=== PATIENT | female | born 1950 | race Caucasian/White ===

== ENCOUNTER → 2018-03-24 14:59 | Outpatient (CLI) | payer MEDICARE, OTHER, SELFPAY ==
--- NOTE | 2018-03-24 15:17 | RAD_ITS ---
STUDY: X-RAY - ABDOMEN/PELVIS REASON FOR EXAM: Female, 68 years old. Right-sided abdominal pain TECHNIQUE: 2 views COMPARISON: None. FINDINGS: There is a lumbar scoliosis with convexity to the left and degenerative changes of the lumbosacral spine. There is no bowel distention or free intraperitoneal air and no abnormal calcifications. RAD/Abdomen Single View IMPRESSION: No acute findings in the abdomen. No abnormal calcifications. Electronically Signed: Carlos Henderson, at 2:30 EDT Tel , Service support ,
== END ==
PROVIDERS: Visit Provider Nurse Practitioner Adult Health
DX: N20.0 Calculus of kidney (principal)
CPT/HCPCS: 74018

== ENCOUNTER → 2018-11-25 14:21 | Outpatient (CLI) | payer MEDICARE, OTHER, SELFPAY ==
--- NOTE | 2018-11-25 14:25 | RAD_ITS ---
STUDY: X-RAY - ABDOMEN/PELVIS REASON FOR EXAM: Female, 68 years old. Flank pain TECHNIQUE: AP supine and upright views of the abdomen and pelvis. COMPARISON: 03/24/2018 FINDINGS: Evidence of previous cholecystectomy There is a moderate amount of colonic fecal material. There is no demonstrated free abdominal air. The visualized liver, spleen and kidneys are grossly normal in size and morphology. Normal soft tissue structures. Degenerative bony changes with stable levoscoliosis. RAD/Abdomen Single View IMPRESSION: No acute findings Electronically Signed: Aaron Hurtado MD at 14:46 EST , Service support ,
== END ==
PROVIDERS: Referring Provider Nurse Practitioner Adult Health; Visit Provider Nurse Practitioner Adult Health
DX: N20.1 Calculus of ureter (principal)
CPT/HCPCS: 74018

== ENCOUNTER → 2018-12-25 16:36 | Outpatient (CLI) | payer MEDICARE, OTHER, SELFPAY ==
--- NOTE | 2018-12-25 16:37 | CT_ITS ---
STUDY: CT ABDOMEN AND PELVIS WITHOUT CONTRAST REASON FOR EXAM: Female, 68 years old. Right-sided kidney stone and lithotripsy RADIATION DOSAGE (If Supplied By Facility): CTDIvol = ( 14.8 ) mGy, DLP = ( 744.55 ) mGycm TECHNIQUE: Transaxial images were obtained from the dome of the diaphragm to the symphysis pubis without oral contrast, and without intravenous contrast. Sagittal and coronal images were reconstructed. Individualized dose optimization techniques were used for this CT. COMPARISON: None. FINDINGS: The visualized lung bases are unremarkable. The visualized portions of the heart are within normal limits. Small hiatal hernia. Fatty liver. There are surgical clips in the gallbladder fossa consistent with a prior cholecystectomy. Normal spleen. Normal pancreas. Normal bilateral adrenal glands. Multiple nonobstructing right renal stones, the largest measuring 5 mm. Normal left kidney. Normal visualized stomach. Normal small intestine. There are multiple colonic diverticula consistent with diverticulosis. The appendix is visualized and appears normal. Normal abdominal aorta. Normal inferior vena cava. Normal retroperitoneum. Normal urinary bladder. Normal abdominal wall. Lumbar scoliosis. CT/Abdomen/Pelvis without Cont IMPRESSION: Multiple nonobstructing right renal stones, the largest measuring 5 mm. No evidence of acute intestinal pathology or acute obstructive uropathy. Electronically Signed: Barrie Cano MD at 23:34 EDT Tel , Service support ,
[2018-12-25 17:43] LABS: AST(SGOT) 20 U/L (15-37); Alanine Aminotransfer ALT/SGPT 28 U/L (13-56); Albumin, Serum 3.9 g/dL (3.2-5.0); Alkaline Phosphatase 106 U/L (45-117); Anion Gap 6 (5-15); BUN 19 mg/dL (7-18); BUN/Creat Ratio 25.3 RATIO (10-20); Calcium,Total 8.9 mg/dL (8.5-10.1); Chloride 106 mmol/L (98-107); Creatinine, Serum 0.75 mg/dL (0.55-1.02); EST Glomerular Filtration Rate 82 mL/min (>60); Est Glom Filt Rate - Afr Amer 99 mL/min (>60); Globulin 3.8 g/dL (2.2-4.2); Glucose 120 mg/dL (74-106); Potassium 3.7 mmol/L (3.5-5.1); Protein, Total 7.7 g/dL (6.4-8.2); Sodium Level 140 mmol/L (136-145)
== END ==
PROVIDERS: Family Provider Family Medicine; PCP Family Medicine; Referring Provider Nurse Practitioner Adult Health; Visit Provider Nurse Practitioner Adult Health
DX: E03.9 Hypothyroidism, unspecified (principal); N20.0 Calculus of kidney; I10 Essential (primary) hypertension
CPT/HCPCS: 36415; 74176; 80053; 84443

== ENCOUNTER → 2018-12-30 13:38 | Outpatient (CLI) | payer MEDICARE, OTHER, SELFPAY ==
[2015-03-29 09:59] VITALS: BMI 38.0
--- NOTE | 2018-12-30 13:50 | EKG12_ITS ---
Test Reason : Blood Pressure : / mmHG Vent. Rate : 069 BPM Atrial Rate : 069 BPM P-R Int : 146 ms QRS Dur : 084 ms QT Int : 404 ms P-R-T Axes : 037 -02 014 degrees QTc Int : 432 ms Normal sinus rhythm Normal ECG Confirmed by ROMERO SAMS, CASSIDY ([id number]), medical transcription editor KALEIGH MADERA ([id number]) on 12/31/2018 1:54:43 PM Referred By: Eric Olvera Confirmed By:CASSIDY JASSO MD
[2018-12-30 14:42] LABS: Hemoglobin 14.4 g/dl (12.0-15.0); Mean Corp Hgb Conc 32.7 g/gl (32-36); Mean Corpuscular Volume 91.7 fL (81-99); Mean Platelet Vol. 12.1 fl (6.2-12.0); Platelet Count 248 K/mm3 (150-450); RBC Distribution Width CV 13.5 % (11.6-14.6); RBC Distribution Width SD 44.9 fl (35.1-43.9); White Blood Count 6.9 K/mm3 (4.4-11.0)
[2018-12-30 14:45] LABS: Scan Indicated on CBC? Y/N NO
== END ==
PROVIDERS: Family Provider Family Medicine; PCP Family Medicine; Referring Provider Urology; Visit Provider Urology
DX: Z01.818 Encounter for other preprocedural examination (principal); I10 Essential (primary) hypertension
CPT/HCPCS: 36415; 85027; 93005

== ENCOUNTER 2019-05-06 14:00 | Outpatient (RCR) | payer MEDICARE, OTHER, SELFPAY ==
--- NOTE | 2019-04-06 15:00 | HP.PTEVAL ---
Patient's Visit Information SHOSHANA MORA is a 69 year old F referred to Physical Therapy by Nikko Morillo DO with a diagnosis of Pain in Left Knee. Date of Evaluation: 04/06/19 Physical Therapist: Gina Johnson DPT - Visit Plan Frequency: 2x /Week Duration: 4 Weeks Plan: Focus on LE and core strength/stabilization with functional mobility- HEP given today- SLS, HR/TR, SLR and clams - Subjective Findings: Patient reports that she has meniscal tears in both knees- but Dr. Morillo thinks that its OA that really bothers her. She went to him for her left knee. She had pain along the medial joint line. Went to see if the tears were worse- sent her to PT for a few visits for strength training. Dr Morillo took x-rays but no MRI- had an injection in May/Jun which helped somewhat- but not a production mechanic solution. Biggest problem is stairs- Does have lumbar spine issues- does not see anyone for that. Both challenged to go up and down. Sometimes she is almost crawling up and then comes sideways down- does have stairs at home. No radiating pain- Describes the pain as stabbing and grabbing. Agg: when you touch them and stairs. Worst: 3/10 Best: 0/10 Eases: deal with it, sit down. Once she stands she can go from there. About a week ago the calf had a snap in it and is walking funny because of it. No N/T in the LE. PMHx: HTN, GERD, Hypothyroid Meds: lysinopril, levothryroxine, rhinidoine. Patient is not very active- she worked all her life and she has been retired for about 2 years and has noticed a lot of differences. - Objective Posture: FH, RS, Increased kyphosis- can correct but does not maintain. Gait: slightly antalgic- slow alyssa and toes turned out to the side. Stairs: asc with 2 hr recip with moderate UE A, Desc: recip with 2 HR and sideways descent. HR/TR: able with UE A. SLS: 3 sec then LOB- moderate hip drop. Palpation: tender along medial joint line. ROm: 0-120 degrees. Strength: Ankle: 5/5, Knee: 4+/5, Hip: 4/5 throughout Core: fair minus. Flex: HS: moderate, Gastroc: moderate - Goals Goal 1:: Patient will be I with HEP and progression Goal Time Frame: 4-6 Weeks Goal 2:: Patient will maintain proper posture t/o tx session to demo increased core s/s. Goal Time Frame: 4-6 Weeks Goal 3:: Patient will ambualte >300 feet with a normalized gait pattern Goal Time Frame: 4-6 Weeks Goal 4:: Patient will asc/desc 8 recip with 1 HR and good pattern Goal Time Frame: 4-6 Weeks - Rehabilitation Potential Physical Therapy Diagnosis: Patient presents with hypomobility- she has decreased strength, flex and muscular endurance leading to abnormal gait pattern and increased pain with ADL's. Rehabilitation Potential: Fair - Anticipated Interventions Patient/Client Instruction: Educate patient on: Benefits of Fitness Program Therapeutic Exercise to Include: Strength training, Endurance training, Balance training, Agility training, Body mechanics, Postural training, Flexibilty training, Gait and locomotor training, Passive ROM, Active ROM, Dynamic Lumbar Stabilization For the Purpose of:: To improve muscle performance and motor function TENS: Yes Cryotherapy (ice pack, ice massage): Yes Thermo therapy (hot pack): Yes Ultrasound (thermal/non thermal): Yes Thank you for the opportunity to evaluate your patient. For Medicare and Medicare HMO plans, please review the plan of care and approve it. It will need to be FAXED BACK to us at [phone] for Medicare purposes. For Medicare only, by signing this I certify the plan of care. Please let me know if there are questions or concerns regarding this plan of care. Physician Signature: Date:
--- NOTE | 2019-05-06 14:17 | HP.PTDCSUM ---
HP - PT D/C Summary It has been my pleasure to treat SHOSHANA MORA under orders from Nikko Morillo DO, for the diagnosis of Pain in Left Knee for a total of 9 visit(s). Discharge Date: Please see the following information for a summary of their discharge status. - Subjective Subjective: Patient reports that her hip is a lot better- the knee does have a little bit of pain with exercises. Stairs going up does- Worst: 4/10- Pain goes away when she stops activities. Knees don't stop her from doing anything. - Pain left knee Pain Intensity (Out of 10): 2 right knee Pain Intensity (Out of 10): 0 - Overall Improvement % Improvement: 100 - Objective Objective/Function: Posture: FH, RS, Increased kyphosis- can correct but does not maintain. Gait: slightly antalgic- slow alyssa and toes turned out to the side. Stairs:as/desc 8 stairs recip with 1 HR. HR/TR: able with UE A. SLS: 8 sec then LOB- mild hip drop. Palpation: not tender ROm: 0-120 degrees. Strength: Ankle: 5/5, Knee: 5/5, Hip: 4+/5 throughout Core: fair. Flex: HS: moderate, Gastroc: moderate - Goals Goal 1:: Patient will be I with HEP and progression Goal Progress: Goal Met Goal 2:: Patient will maintain proper posture t/o tx session to demo increased core s/s. Goal Progress: Progressing Goal 3:: Patient will ambualte >300 feet with a normalized gait pattern Goal Progress: Progressing Goal 4:: Patient will asc/desc 8 recip with 1 HR and good pattern Goal Progress: Goal Met - Plan Plan: Discharge to I HEP - D/C Information If there are questions or concerns regarding this patient's physical therapy, please feel free to call me at [phone]. Thank you for the referral of this patient. Sincerely, Gina Johnson DPT
== END 2019-05-06 14:34 | disposition home or self-care (01) ==
LOC: PT 14:00
PROVIDERS: Family Provider Family Medicine; PCP Family Medicine; Referring Provider Orthopaedic Surgery; Visit Provider Orthopaedic Surgery
DX: M25.562 Pain in left knee (principal); M17.12 Unilateral primary osteoarthritis, left knee
CPT/HCPCS: 97110; 97140; 97161; 97164

== ENCOUNTER 2019-09-21 15:39 | Emergency (ER) | payer MEDICARE, OTHER, SELFPAY ==
[2019-09-21 15:39] VITALS: BP 178/95; PULSE 84; RESP 16; TEMP 36.4; O2SAT 97; BMI 39.1
--- NOTE | 2019-09-21 15:57 | ED.DCSUM_ITS ---
History of Present Illness Chief Complaint: Flank Pain Informant: Patient Onset: Today Narrative: Waxing waning right flank pain rating to the groin today. Nausea when pain comes. Currently subsided. History kidney stones in the past, last one this past fall. Has been dealing with stone since 1996. Required laser surgery by Dr. Olvera this past fall. No urinary symptoms. No fevers. Denies history of gastric ulcers or kidney injury. No fever, chills, sweats. Prior similar symptoms: Yes Past Medical History - Allergies and Home Meds Allergies/Adverse Reactions: Allergies PLASTIC TAPE Adverse Reaction (Uncoded 09/21/19 15:39) Other PULLS SKIN OFF Primary Care Physician: Bipin Adams MD [Primary Care Provider] - Smoking Status: Never smoker Review of Systems All systems negative except as indicated General: Denies: Chills, Fever, Sweats Eyes: Denies: Visual changes - bilaterally, Diplopia ENT: Denies: Rhinorrhea, Sore throat Cardiovascular: Denies: Chest pain, Palpitations Respiratory: Denies: Dyspnea, Cough, Dyspnea on exertion Gastrointestinal: Reports: Nausea. Denies: Abdominal pain, Vomiting, Diarrhea, Melena, Hematochezia Genitourinary: Denies: Dysuria, Hematuria, Frequency Musculoskeletal: Reports: Back pain. Denies: Extremity Pain Skin: Denies: Rash, Wounds Neurological: Denies: Headache, Weakness, Numbness Physical Exam Vital Signs/Narrative: Vital Signs Temp Pulse Resp BP Pulse Ox 09/21/19 15:39 97.5 F L 84 16 178/95 H 97 Inital Vital Signs reviewed: Yes General: Well nourished, Well developed, No Acute Distress Head: Normocephalic, Atraumatic Eyes: Perrl, EOMI ENT: Moist mucous membranes, No rhinorrhea Neck: Supple, Nontender Cardiovascular: Regular rate, Regular rhythm, No murmurs Respiratory: No distress, CTA bilaterally, Chest nontender Abdomen: Soft, Nontender, Nondistended, Normal bowel sounds Back: Nontender, Normal Inspection, - - No rash of flank region.. Negative for: CVA tenderness Extremities: Nontender, No edema Skin: Normal color, No rash Neurological: Alert, Oriented x3, Cranial nerves II-XII grossly intact, Normal Strength, Normal Sensation Psychological: Normal affect, Normal Mood Diagnostic/Tx/Re-eval Clinical Impression(s) from Imaging Studies Abdomen/Pelvis CT 09/21/19 15:57 IMPRESSION: 2 mm stone at the right ureteropelvic junction with moderate right hydronephrosis. 2 mm nonobstructing stone in the collecting system of the right kidney. No left-sided stones. No left-sided hydronephrosis. No bowel obstruction or inflammation. Normal appendix. Electronically Signed: Dick Kim, at 16:31 EST Tel , Service support , Abnormal Lab Results 09/21/19 16:10 Urine Color Yellow Urine Clarity Clear Urine pH 6.0 Ur Specific [place] 1.025 Urine Protein Negative Urine Glucose (UA) Normal Urine Ketones 5 H Urine Occult Blood 25 H Urine Nitrite Negative Urine Bilirubin Negative Urine Urobilinogen Normal Ur Leukocyte Esterase Negative Urine RBC 0-5 SEEN Urine WBC 0 SEEN Ur Squamous Epith Cells 0-5 SEEN Urine Bacteria RARE Urine Mucus 1+ - Medical Decision Making Patient nontoxic on exam. Symptoms are subsiding. Urine checked noted hematuria. CT scan notes 2 separate 2 mm stones on the right side. Reevaluation symptoms return, treat with Zofran, Flomax, Motrin, oxycodone with improvement. There is no infection of the urine symptoms currently controlled. Prescriptions to continue for symptom control and follow-up with urology. Signs and sent discussed return. All questions were answered. ED Disposition - Plan for ED Patient: Disposition: Home or Assisted Living Diagnosis: Urolithiasis Instructions: KIDNEY STONE w/ Colic Prescriptions: Tamsulosin HCl [Flomax] 0.4 mg PO DAILY #7 capsule Ibuprofen 600 mg PO Q6H PRN PRN #20 tablet PRN Reason: Pain Or Fever Oxycodone HCl/Acetaminophen [Percocet 5/325] 1 tablet PO Q6H PRN PRN 3 Days #12 tablet PRN Reason: Pain Ondansetron [Zofran Odt] 4 mg PO Q8H PRN PRN #10 tablet PRN Reason: Nausea Referrals: Bipin Adams MD [Primary Care Provider] - Eric Olvera MD [STAFF PHYSICIAN] - 3-5 Days
--- NOTE | 2019-09-21 15:57 | CT_ITS ---
STUDY: CT ABDOMEN AND PELVIS WITHOUT CONTRAST REASON FOR EXAM: Female, 69 years old. Right flank pain RADIATION DOSAGE (If Supplied By Facility): CTDIvol = ( 14.80 ) mGy, DLP = ( 733.45 ) mGycm TECHNIQUE: Transaxial images were obtained from the dome of the diaphragm to the symphysis pubis without oral contrast, and without intravenous contrast. Sagittal and coronal images were reconstructed. Individualized dose optimization techniques were used for this CT. COMPARISON: 12/25/2018 FINDINGS: Evaluation of the abdominal viscera is limited in the absence of intravenous contrast. The visualized lung bases are clear. The visualized portions of the heart and pericardium are within normal limits. The patient is status post cholecystectomy. The liver demonstrates an unremarkable unenhanced appearance. The spleen is normal in size. The pancreas demonstrates an unremarkable unenhanced appearance. The adrenal glands are within normal limits. There is a 2 mm stone at the right ureteropelvic junction with moderate right hydronephrosis. There is a 2 mm nonobstructing stone in the collecting system of the right kidney. There are no left renal or ureteral stones. There is no left hydronephrosis. Normal visualized stomach. There is no bowel obstruction or inflammation. The appendix is visualized and appears normal. The aorta is normal in caliber. There is no abdominal or pelvic free air, free fluid, fluid collection or lymphadenopathy. There are no destructive osseous lesions. CT/Abdomen/Pelvis without Cont IMPRESSION: 2 mm stone at the right ureteropelvic junction with moderate right hydronephrosis. 2 mm nonobstructing stone in the collecting system of the right kidney. No left-sided stones. No left-sided hydronephrosis. No bowel obstruction or inflammation. Normal appendix. Electronically Signed: Dick Kim, at 16:31 EST Tel , Service support ,
[2019-09-21 16:15] LABS: White Blood Cells 0 SEEN /hpf (0-5)
[2019-09-21 16:22] LABS: Color, Urine Yellow (Yellow); Glucose, Dipstick Normal (Normal); Ketone-Dipstick 5 mg/dl (Negative); Leukocyte Esterase-Dipstick Negative /ul (Negative); Nitrite-Dipstick Negative (Negative); Occult Blood-Urine 25 /ul (Negative); Protein-Dipstick Negative (Negative); Specific Gravity, Urine 1.025 (1.002-1.030); Urine Bilirubin Dipstick Negative (Negative); Urine Clarity Clear (Clear); Urine Urobilinogen Normal (Normal)
[2019-09-21 16:50] LABS: Bacteria RARE /hpf (None Seen); Mucous, Urine 1+ /hpf (<or=2+); Red Blood Cells-Urine 0-5 SEEN /hpf (0-5); Squamous Epithelial Cells - UA 0-5 SEEN /hpf (5-10)
[2019-09-21] MEDS: Ondansetron ODT 4 MG Tablet 8 MG PO (17:12)
[2019-09-21] MEDS: Ibuprofen 600 MG Tablet PO (17:40)
[2019-09-21] MEDS: oxyCODONE 5 MG Tablet PO (17:40)
[2019-09-21] MEDS: Tamsulosin HCl 0.4 MG Capsule PO (17:40)
[2019-09-21 17:41] VITALS: BP 149/68; PULSE 66; RESP 16; O2SAT 97
== END 2019-09-21 18:34 | disposition home or self-care (01) ==
PROVIDERS: Emergency Provider Emergency Medicine; Family Provider Family Medicine; PCP Family Medicine
DX: N13.2 Hydronephrosis with renal and ureteral calculous obstruction (principal); Z87.442 Personal history of urinary calculi; Z88.8 Allergy status to other drugs, medicaments and biological substances
CPT/HCPCS: 74176; 81001; 99283

== ENCOUNTER → 2019-09-24 15:25 | Outpatient (CLI) | payer MEDICARE, OTHER, SELFPAY ==
[2019-09-21 15:39] VITALS: BMI 39.1
[2019-09-24 17:46] LABS: Absolute Lymphocyte Count 1.56 X10^3/uL (0.83-4.51); Absolute Neutrophil Count 5.8 X10^3/uL (2.0-7.7); Basophil# 0.03 X10^3/uL; Basophil% 0.4 % (0-1); Eosinophil# 0.13 X10^3/uL; Eosinophils% 1.6 % (0-5); Hematocrit 42.6 % (37-47); Hemoglobin 13.9 g/dL (12.0-15.0); Lymphocyte # 1.56 X10^3/ul (4.0); Mean Corp Hgb Conc 32.6 g/dL (32-36); Mean Corpuscular Hgb 30.2 pg (27.0-32.0); Mean Corpuscular Volume 92.4 fL (81-99); Mean Platelet Vol. 12.2 fl (6.2-12.0); Monocyte# 0.67 X10^3/uL; Monocyte% 8.2 % (0-10); NRBC Flagged by Analyzer 0 % (0-5); Neutrophil # 5.79 X10^3/uL (2.7-7.7); Neutrophil % 70.3 % (47-70); Platelet Count 256 K/mm3 (150-450); RBC Distribution Width CV 12.7 % (11.6-14.6); RBC Distribution Width SD 43.1 fl (35.1-43.9); Red Blood Count 4.61 M/mm3 (4.2-5.4); White Blood Count 8.2 K/mm3 (4.4-11.0)
[2019-09-24 17:47] LABS: Vitamin D,25 Hydroxy 16.2 ng/mL (29.95-100.01)
[2019-09-24 17:52] LABS: AST(SGOT) 21 U/L (15-37); Alanine Aminotransfer ALT/SGPT 37 U/L (13-56); Albumin, Serum 3.8 g/dL (3.2-5.0); Alkaline Phosphatase 101 U/L (45-117); Anion Gap 4 (5-15); BUN 14 mg/dL (7-18); BUN/Creat Ratio 20.1 RATIO (10-20); Chloride 106 mmol/L (98-107); EST Glomerular Filtration Rate 89 mL/min (>60); Est Glom Filt Rate - Afr Amer 108 mL/min (>60); Globulin 3.8 g/dL (2.2-4.2); Glucose 103 mg/dL (74-106); Potassium 4.3 mmol/L (3.5-5.1); Protein, Total 7.6 g/dL (6.4-8.2); Sodium Level 140 mmol/L (136-145); Thyroid Stim Hormone (TSH) 1.44 uIU/mL (0.358-3.74); Uric Acid 4.8 mg/dL (2.6-6.0)
[2019-10-14 16:07] LABS: Ca Oxalate, Dihydrate 15 % (.); Ca Oxalate, Monohydrate 82 % (.); Size 4x2x2 mm (.)
== END ==
PROVIDERS: Urology; Family Provider Family Medicine; PCP Family Medicine; Referring Provider Family Medicine; Visit Provider Family Medicine
DX: I10 Essential (primary) hypertension (principal); N20.0 Calculus of kidney
CPT/HCPCS: 36415; 80053; 82306; 82360; 84443; 84550; 85025

== ENCOUNTER → 2020-03-23 11:30 | Outpatient (CLI) | payer MEDICARE, OTHER, SELFPAY ==
[2020-03-23 16:10] LABS: AST(SGOT) 20 U/L (15-37); Alanine Aminotransfer ALT/SGPT 34 U/L (13-56); Albumin, Serum 3.8 g/dL (3.2-5.0); Alkaline Phosphatase 94 U/L (45-117); Anion Gap 6 (5-15); BUN 18 mg/dL (7-18); BUN/Creat Ratio 27.8 RATIO (10-20); Calcium,Total 9.6 mg/dL (8.5-10.1); Chloride 105 mmol/L (98-107); Creatinine, Serum 0.65 mg/dL (0.55-1.02); EST Glomerular Filtration Rate 97 mL/min (>60); Est Glom Filt Rate - Afr Amer 117 mL/min (>60); Globulin 3.8 g/dL (2.2-4.2); Glucose 97 mg/dL (74-106); Potassium 4.3 mmol/L (3.5-5.1); Protein, Total 7.6 g/dL (6.4-8.2); Sodium Level 140 mmol/L (136-145)
== END ==
PROVIDERS: PCP Family Medicine; Visit Provider Family Medicine
DX: I10 Essential (primary) hypertension (principal); E55.9 Vitamin D deficiency, unspecified
CPT/HCPCS: 36415; 80053; 82306

== ENCOUNTER → 2020-07-05 14:14 | Outpatient (CLI) | payer MEDICARE, OTHER, SELFPAY ==
--- NOTE | 2020-07-05 14:17 | BI_ITS ---
MAMMOGRAPHY - BILATERAL SCREENING REASON FOR EXAM: Female, 70 years old. Routine annual screening examination. PERTINENT HISTORY: Non-contributory. TECHNIQUE: Digital bilateral breast juli (3D mammographic acquisition) in the CC and MLO projections. 2-D mediolateral oblique (MLO) and craniocaudad (CC) views of both breasts were obtained. CAD: Full Field Digital Mammography with Computer Added Detection was performed. COMPARISON: Comparison is made with prior outside examination 07/28/2018. FINDINGS: Breast Composition: The breasts are heterogeneously dense, which may obscure small masses. There are no dominant masses or suspicious calcifications. No other significant abnormalities are identified. There has been no significant change since the prior study. BI/SCREEN MAMM (CAD) W/JULI BILAT IMPRESSION: Stable bilateral screening mammogram. Yearly follow-up mammogram recommended. (A) ASSESSMENT CATEGORY: BIRADS Category 1: Negative. A letter regarding these results will be sent to the patient by the facility within 30 days. Approximately 10% of breast cancers are not detected by mammography. A normal mammogram should not delay biopsy of a clinically suspicious abnormality. [id number] Electronically Signed: Jaciel Isabel, at 15:35 EDT , Service support ,
--- NOTE | 2020-07-05 14:21 | BD_ITS ---
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 COMPARISON: None. FINDINGS: Lumbar Spine (L1-L4): g/cm2 (1.143) / T-score (-0.3) / Z-score (1.3) Findings are suggestive of normal bone density with a low fracture risk. Left Femur Total: g/cm2 (0.831) / T-score (-1.4) / Z-score (0.0) Left Femoral Neck: g/cm2 (0.697) / T-score (-2.5) / Z-score (-0.8) Right Femur Total: g/cm2 (0.847) / T-score (-1.3) / Z-score (0.1) Right Femoral Neck: g/cm2 (0.705) / T-score (-2.4) / Z-score (0.8) BD/Dexa Bone Density Study IMPRESSION: The patient is considered osteopenic as outlined below according to World Yonas Organization (WHO) criteria with a high fracture risk. Reference Information: The T-score is the number of standard deviations above or below the standard which is normal for young adults at their peak bone mineral density. The World Health Organization (WHO) interprets the T-scores as follows: Above -1 Normal bone density Between -1 and -2.5 Osteopenia Equal to / or below -2.5 Osteoporosis As a practical clinical guideline, osteopenia may be graded as follows: Mild -1 through -1.5 Moderate -1.6 through -2.0 Severe -2.1 through -2.4 The Z-score is the number of standard deviations above or below age-matched controls. A Z-score of less than -1.5 would be considered abnormal. References: 1. NIH Osteoporosis and Related Bone Diseases http://www.osteo.org 2. International Society for Clinical Densitometry http://www.iscd.org 3. National Osteoporosis Foundation http://www.nof.org Electronically Signed: Jaciel Isabel, at 15:59 EDT , Service support ,
== END ==
PROVIDERS: PCP Family Medicine; Referring Provider Nurse Practitioner Adult Health; Visit Provider Nurse Practitioner Adult Health
DX: Z12.31 Encounter for screening mammogram for malignant neoplasm of breast (principal); Z78.0 Asymptomatic menopausal state
CPT/HCPCS: 77063; 77067; 77080

== ENCOUNTER → 2020-12-30 11:25 | Outpatient (CLI) | payer MEDICARE, OTHER, SELFPAY ==
[2020-12-30 15:34] LABS: Microalbumin,Random Urine < 5.0 mg/L (NO RANGE EST.)
[2020-12-30 15:40] LABS: AST(SGOT) 22 U/L (15-37); Alanine Aminotransfer ALT/SGPT 33 U/L (13-56); Albumin, Serum 3.8 g/dL (3.2-5.0); Alkaline Phosphatase 100 U/L (45-117); Anion Gap 6 (5-15); BUN 17 mg/dL (7-18); BUN/Creat Ratio 25.8 RATIO (10-20); Calcium,Total 9.2 mg/dL (8.5-10.1); Chloride 105 mmol/L (98-107); Creatinine, Serum 0.66 mg/dL (0.55-1.02); EST Glomerular Filtration Rate 95 mL/min (>60); Est Glom Filt Rate - Afr Amer 115 mL/min (>60); Globulin 3.7 g/dL (2.2-4.2); Glucose 96 mg/dL (74-106); Potassium 4.1 mmol/L (3.5-5.1); Protein, Total 7.5 g/dL (6.4-8.2); Sodium Level 140 mmol/L (136-145); Thyroid Stim Hormone (TSH) 1.86 uIU/mL (0.358-3.74)
== END ==
PROVIDERS: PCP Family Medicine; Referring Provider Family Medicine; Visit Provider Family Medicine
DX: I10 Essential (primary) hypertension (principal); E03.9 Hypothyroidism, unspecified; E55.9 Vitamin D deficiency, unspecified
CPT/HCPCS: 36415; 80053; 82043; 82306; 82570; 84443

== ENCOUNTER → 2021-02-14 16:17 | Outpatient (CLI) | payer MEDICARE, OTHER, SELFPAY ==
--- NOTE | 2021-02-14 16:19 | RAD_ITS ---
STUDY: X-RAY - PELVIS AND LEFT HIP REASON FOR EXAM: Female, 71 years old. Left hip and back pain TECHNIQUE: 3 views of the pelvis and hip. COMPARISON: None. FINDINGS: There is a non-specific bowel gas pattern. Normal visualized soft tissue structures. Normal bilateral iliac wings, sacroiliac joints and visualized sacrum. Normal bilateral superior and inferior pubic rami. Normal pubic symphysis. Normal bilateral ischial tuberosities. Normal visualized femoral head. Normal acetabulum. There is mild articular joint space narrowing of the hip. RAD/HIP, UNI W/ Pelvis 2-3 Views IMPRESSION: Mild, age consistent degenerative changes, no acute findings Electronically Signed: Aaron Hurtado MD at 8:51 EDT , Service support ,
--- NOTE | 2021-02-14 16:19 | RAD_ITS ---
STUDY: X-RAY - SACROILIAC JOINTS REASON FOR EXAM: Female, 71 years old. Left hip and low back pain TECHNIQUE: 3 view(s) of the sacroiliac joints were obtained. COMPARISON: None. FINDINGS: Normal bilateral sacroiliac joints. Normal visualized sacral ala and sacrum. Normal visualized iliac bones. Normal visualized soft tissue structures. RAD/S-I Jts 3 or More Views IMPRESSION: Normal x-ray examination of the bilateral sacroiliac joints. Electronically Signed: Aaron Hurtado MD at 8:52 EDT , Service support ,
--- NOTE | 2021-02-14 16:19 | RAD_ITS ---
STUDY: X-RAY - RIGHT KNEE REASON FOR EXAM: Female, 71 years old. Pain, instability TECHNIQUE: 3 view(s) of the knee. COMPARISON: None. FINDINGS: Normal visualized distal femur. Normal visualized proximal tibia and fibula. Normal proximal tibiofibular articulation. There is mild degenerative arthrosis of the medial femorotibial compartment. There is mild degenerative arthrosis of the lateral femorotibial compartment. There is mild degenerative arthrosis of the patellofemoral articulation. The soft tissue structures are unremarkable. RAD/Knee 3 Views IMPRESSION: Degenerative arthrosis. Electronically Signed: Aaron Hurtado MD at 8:51 EDT , Service support ,
== END ==
PROVIDERS: PCP Family Medicine; Referring Provider Family Medicine; Visit Provider Family Medicine
DX: M25.561 Pain in right knee (principal); M76.892 Other specified enthesopathies of left lower limb, excluding foot
CPT/HCPCS: 72202; 73502; 73562

== ENCOUNTER 2021-04-24 16:30 | Outpatient (RCR) | payer MEDICARE, OTHER, SELFPAY ==
--- NOTE | 2021-02-22 15:34 | HP.PTEVAL_ITS ---
Patient's Visit Information SHOSHANA MORA is a 71 year old F referred to Physical Therapy by Dr. Bipin Adams MD with a diagnosis of Right Knee Pain/Weakness- OA and Left Hip Tendonitis. Date of Evaluation: 02/22/21 Physical Therapist: Gina Johnson DPT - Visit Plan Frequency: 2x /Week Duration: 4 Weeks Plan: Focus on LE and core strength/stabilization- mod of US as needed. HEP Given IE: SLR, hip adduction, hip abduction, HR/TR, Weight shift left, SLS right - Subjective Patient reports that she has left hip pain and right knee pain. She has had hip and knee pain for years and years. 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 Went to chiro last month who was treating for SI joint and thought she had some hip narrowing. Had x-rays taken- which showed some OA. She was given an anti- inflamatory Meloxicam which made her feet swell so they put her on Celebrex no changes in pain noted. Right knee gives out on her so she has to use the left leg which really is painful and she is required to use a rail on both sides. Left: Worst: 7/10 Agg: sitting for long periods of time and going up stairs. The pain is located in the greater troch on the posterior side. Feels that its tendonitis. No radiating pain- no N/T that is new. Does have back pain with sweeping and mopping- has to rest throughout those activities. Worst: 2/10 Eases: distraction and standing hip circles. Describes the pain as painful when she goes to get up from sitting a sharp pain. Did go back to work and help- standing for the whole time she is at work. Does wear orthotics and compression hose when she is working or going out for a walk. She has retired so she is more sedentary. Right Knee- meniscal tear- no surgeries on that knee- has had an injection which helped but it was a long time ago. Worst: 8/10 Sharp shooting pain Agg: weight bearing. Is doing the exercises but still irritated. Best: 0/10 Eases: sitting down or resting. Pain is located along medial and lateral joint line- no pain radiating in LE- no N/T in the right foot. Patient has not had any recent MRI of bilateral LE. Sleep: disturbed if she turns onto the left side. PMHX: Thyroid, HTN Meds: HTN med and thyroid, vitamin K, phemododine - Objective Posture: FH, RS, increased kyphosis- can correct but does not maintain. Gait: antalgic- decreased heel/toe pattern on right with increased hip drop and stance on the left- increased pelvic sway. Stairs: asc non recip with 2 HR, desc recip sideways. HR/TR: able with UE A. SLS: Right: 10-15 seconds Left: 2-3 seconds with pain on the left. 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 ROM: WFL in all planes of lumbar and bilateral LE. Flex: HS: mild, Gastroc: mild. Strength: Core: fair minus, Hip: 4-/5 throughout, Knee: 4+/5, Ankle: 5/5. Palpation: tender along medial and lateral joint line of the right knee- glut med on the left. - Goals Goal 1:: Patient will be I with HEP and progression Goal Time Frame: 4-6 Weeks Goal 2:: Patient will asc/desc 8 stairs with 1 HR and recip pattern Goal Time Frame: 4-6 Weeks Goal 3:: Patient will SLS bilateral 15 sec each Goal Time Frame: 4-6 Weeks Goal 4:: Patient will report no pain for 1 week in bilateral LE Goal Time Frame: 4-6 Weeks - Rehabilitation Potential Physical Therapy Diagnosis: Patient presents with hypomobility- she has decreased core strength/stabilization, LE strength, proprioception and muscular endurance leading to poor posture and increased pain with ADL's. Rehabilitation Potential: Good - Anticipated Interventions Patient/Client Instruction: Educate patient on: Benefits of Fitness Program Therapeutic Exercise to Include: Strength training, Endurance training, Balance training, Agility training, Body mechanics, Postural training, Flexibilty training, Gait and locomotor training, Neuromotor development, Passive ROM, Active ROM, Dynamic Lumbar Stabilization, Scapular Strength/Stabilization For the Purpose of:: To improve muscle performance and motor function TENS: Yes Cryotherapy (ice pack, ice massage): Yes Thermo therapy (hot pack): Yes Ultrasound (thermal/non thermal): Yes Thank you for the opportunity to evaluate your patient. For Medicare and Medicare HMO plans, please review the plan of care and approve it. It will need to be FAXED BACK to us at [phone] for Medicare purposes. For Medicare only, by signing this I certify the plan of care. Please let me know if there are questions or concerns regarding this plan of care. Physician Signature: Date:
--- NOTE | 2021-04-03 11:30 | HP.PTREVAL ---
Dr. Bipin Adams MD, It has been my pleasure to treat SHOSHANA MORA over the last 8 visits for Right Knee Pain/Weakness- OA and Left Hip Tendonitis. Please see the progress note below for an update on the physical therapy plan of care! Subjective: Patient reports that she is getting better- but she is still having problems with some exercises- and gets a grisel horse in the back of her right leg. Objective/Function: Posture: FH, RS, increased kyphosis- can correct but does not maintain. Gait: antalgic- decreased heel/toe pattern on right with increased hip drop and stance on the left- increased pelvic sway. Stairs: asc recip with 2 HR, desc recip partially sideways. HR/TR: able with UE A. SLS: Right: 10-15 seconds Left: 5-10 seconds with pain on the left. ROM: WFL in all planes of lumbar and bilateral LE. Flex: HS: mild, Gastroc: mild. Strength: Core: fair minus, Hip: 4/5 throughout, Knee: 4+/5, Ankle: 5/5. Palpation: tender along medial and lateral joint line of the right knee- glut med on the left. Plan Plan: 04/03: Continue with current poc- focus on machines and move standing ex to HEP. Focus on LE and core strength/stabilization- mod of US as needed. HEP Given IE: SLR, hip adduction, hip abduction, HR/TR, Weight shift left, SLS right Goals Goal 1:: Patient will be I with HEP and progression Goal Time Frame: 4-6 Weeks Goal Progress: Progressing Goal 2:: Patient will asc/desc 8 stairs with 1 HR and recip pattern Goal Time Frame: 4-6 Weeks Goal Progress: Progressing Goal 3:: Patient will SLS bilateral 15 sec each Goal Time Frame: 4-6 Weeks Goal Progress: Progressing Goal 4:: Patient will report no pain for 1 week in bilateral LE Goal Time Frame: 4-6 Weeks Goal Progress: Progressing Anticipated Interventions Patient/Client Instruction: Educate patient on: Benefits of Fitness Program Therapeutic Exercise to Include: Strength training, Endurance training, Balance training, Agility training, Body mechanics, Postural training, Flexibilty training, Gait and locomotor training, Neuromotor development, Passive ROM, Active ROM, Dynamic Lumbar Stabilization, Scapular Strength/Stabilization For the Purpose of:: To improve muscle performance and motor function TENS: Yes Cryotherapy (ice pack, ice massage): Yes Thermo therapy (hot pack): Yes Ultrasound (thermal/non thermal): Yes Please do not hesitate to contact me at [phone] by phone or if you have questions or concerns regarding this new plan of care! Sincerely, DELFINO GrayT
--- NOTE | 2021-04-24 16:54 | HP.PTDCSUM ---
It has been my pleasure to treat SHOSHANA MORA referred by Dr. Bipin Adams MD, with the diagnosis of Right Knee Pain/Weakness- OA and Left Hip Tendonitis for a total of 13 visit(s). Discharge Date: Please see the following information for a summary of their discharge status. Subjective: Reports taking a fall at work and landing on her right hip and knee. It still wakes her up at night sometimes. When she gets up and moving she is doing better. right knee Pain Intensity (Out of 10): 4 left hip Pain Intensity (Out of 10): 0 % Improvement: 0 Objective/Function: Patient was able to complete without incidence. Verbalized understanding of importance of exercises. Educated to call if questions. Goal 1:: Patient will be I with HEP and progression Goal Progress: Progressing Goal 2:: Patient will asc/desc 8 stairs with 1 HR and recip pattern Goal Progress: Progressing Goal 3:: Patient will SLS bilateral 15 sec each Goal Progress: Progressing Goal 4:: Patient will report no pain for 1 week in bilateral LE Goal Progress: Progressing Plan: 04/24: Discharge to HEP. 04/03: Continue POC - focus on machines. Focus on LE and core strength/stabilization- mod of US as needed If there are questions or concerns regarding this patient's physical therapy, please feel free to call me at [phone]. Thank you for the referral of this patient. Sincerely, Gina Johnson DPT
== END 2021-04-24 19:00 | disposition home or self-care (01) ==
LOC: PT 16:30
PROVIDERS: PCP Family Medicine; Referring Provider Family Medicine; Visit Provider Family Medicine
DX: M25.561 Pain in right knee (principal); M62.81 Muscle weakness (generalized); M16.12 Unilateral primary osteoarthritis, left hip; M76.9 Unspecified enthesopathy, lower limb, excluding foot
CPT/HCPCS: 97035; 97110; 97162; 97530

== ENCOUNTER → 2021-07-07 17:45 | Outpatient (CLI) | payer MEDICARE, OTHER, SELFPAY | PROVIDERS: Visit Provider Family Medicine | DX: Z20.822 Contact with and (suspected) exposure to COVID-19 (principal) | CPT/HCPCS: 87635; U0005; U0003 ==

== ENCOUNTER → 2021-07-11 07:43 | Outpatient (CLI) | payer MEDICARE, OTHER, SELFPAY ==
--- NOTE | 2021-07-11 07:47 | BI_ITS ---
MAMMOGRAPHY - BILATERAL SCREENING 3-D TOMOSYNTHESIS REASON FOR EXAM: Female, 71 years old. SCREENING PERTINENT HISTORY: No significant family history. TECHNIQUE: 2-D mammograms and 3-D Tomosynthesis of the breast (s) were performed. CAD was performed. COMPARISON: 07/05/2020 FINDINGS: The breast composition is heterogeneously dense that can obscure small breast masses. Scattered benign calcifications are seen. No dense spiculated masses or suspicious microcalcifications are identified. No architectural distortion is identified. There is no skin thickening or retraction. There has been no significant change since the prior study. BI/SCREENING MAMM (CAD), BILAT IMPRESSION: No mammographic signs of malignancy. Routine yearly mammograms recommended. ASSESSMENT CATEGORY: BIRADS Category 1: Negative. A letter regarding these results will be sent to the patient by the facility within 30 days. FOLLOW UP RECOMMENDATION: Yearly follow up mammogram recommended. (A) Approximately 10% of breast cancers are not detected by mammography. A normal mammogram should not delay biopsy of a clinically suspicious abnormality. Electronically Signed: Glen Light MD at 8:17 EDT Tel , Service support ,
== END ==
PROVIDERS: PCP Family Medicine; Referring Provider Family Medicine; Visit Provider Family Medicine
DX: Z12.31 Encounter for screening mammogram for malignant neoplasm of breast (principal)
CPT/HCPCS: 77067

== ENCOUNTER 2021-12-20 09:47 | Outpatient (CLI) | payer MEDICARE, OTHER, SELFPAY ==
[2021-12-20 12:39] LABS: Hemoglobin A1c 5.6 % (3.8-5.6)
[2021-12-20 12:40] LABS: Microalbumin,Random Urine < 5.0 mg/L (NO RANGE EST.)
[2021-12-20 12:44] LABS: ALB/GLOB Ratio 1.2 RATIO (0.9-2.4); AST(SGOT) 21 U/L (15-37); Alanine Aminotransfer ALT/SGPT 30 U/L (13-56); Albumin, Serum 3.8 g/dL (3.2-5.0); Alkaline Phosphatase 97 U/L (45-117); Anion Gap 4 (5-15); BUN 19 mg/dL (7-18); BUN/Creat Ratio 32.7 RATIO (10-20); Chloride 105 mmol/L (98-107); Cholesterol 181 mg/dL (200); Creatinine, Serum 0.58 mg/dL (0.55-1.02); EST Glomerular Filtration Rate 109 mL/min (>60); Est Glom Filt Rate - Afr Amer 132 mL/min (>60); Globulin 3.3 g/dL (2.2-4.2); Glucose 97 mg/dL (74-106); High Density Lipoprotein 48 mg/dL; Potassium 4.9 mmol/L (3.5-5.1); Protein, Total 7.1 g/dL (6.4-8.2); Sodium Level 140 mmol/L (136-145); Thyroid Stim Hormone (TSH) 2.62 uIU/mL (0.358-3.74); Triglycerides 65 mg/dL; Very Low Density Lipoprotein 13 mg/dL (5-40)
== END 2021-12-20 23:59 | disposition home or self-care (01) ==
LOC: MFPLAB 09:50
PROVIDERS: PCP Family Medicine; Referring Provider Family Medicine; Visit Provider Family Medicine
DX: I10 Essential (primary) hypertension (principal); E66.01 Morbid (severe) obesity due to excess calories; E03.9 Hypothyroidism, unspecified; Z68.39 Body mass index [BMI] 39.0-39.9, adult
CPT/HCPCS: 36415; 80053; 80061; 82043; 82570; 83036; 84443

== ENCOUNTER → 2022-01-26 | Outpatient (CLI) | payer MEDICARE, OTHER, SELFPAY | END | disposition home or self-care (01) | PROVIDERS: PCP Family Medicine; Visit Provider Family Medicine | DX: N39.0 Urinary tract infection, site not specified (principal) | CPT/HCPCS: 87086 ==

== ENCOUNTER → 2022-07-06 | Outpatient (CLI) | payer MEDICARE, OTHER, SELFPAY ==
[2022-07-06 15:12] LABS: Absolute Lymphocyte Count 1.71 X10^3/uL (0.83-4.51); Absolute Neutrophil Count 5.2 X10^3/uL (2.0-7.7); Basophil# 0.05 X10^3/uL; Basophil% 0.7 % (0-1); Eosinophils% 1.3 % (0-5); Hematocrit 42.6 % (37-47); Hemoglobin 14.3 g/dL (12.0-15.0); Lymphocyte # 1.71 X10^3/ul (0.83-4.51); Lymphocyte % 22.4 % (19-41); Mean Corp Hgb Conc 33.6 g/dL (32-36); Mean Corpuscular Hgb 30.4 pg (27.0-32.0); Mean Corpuscular Volume 90.6 fL (81-99); Mean Platelet Vol. 11.6 fl (6.2-12.0); Monocyte# 0.55 X10^3/uL; Monocyte% 7.2 % (0-10); NRBC Flagged by Analyzer 0 % (0-5); Neutrophil # 5.19 X10^3/uL (2.7-7.7); Neutrophil % 68.1 % (47-70); Platelet Count 264 K/mm3 (150-450); RBC Distribution Width SD 42.8 fl (35.1-43.9); White Blood Count 7.6 K/mm3 (4.4-11.0)
[2022-07-06 15:40] LABS: Vitamin D,25 Hydroxy 37.5 ng/mL
[2022-07-06 15:41] LABS: AST(SGOT) 24 U/L (15-37); Alanine Aminotransfer ALT/SGPT 43 U/L (13-56); Albumin, Serum 3.7 g/dL (3.2-5.0); Alkaline Phosphatase 91 U/L (45-117); Anion Gap 10 (5-15); BUN 18 mg/dL (7-18); Calcium,Total 9.5 mg/dL (8.5-10.1); Chloride 106 mmol/L (98-107); Creatinine, Serum 0.62 mg/dL (0.55-1.02); EST Glomerular Filtration Rate 101 mL/min (>60); Est Glom Filt Rate - Afr Amer 122 mL/min (>60); Globulin 3.8 g/dL (2.2-4.2); Glucose 102 mg/dL (74-106); Potassium 3.9 mmol/L (3.5-5.1); Protein, Total 7.5 g/dL (6.4-8.2); Sodium Level 139 mmol/L (136-145); Thyroid Stim Hormone (TSH) 1.31 uIU/mL (0.358-3.74)
[2022-07-06 15:55] LABS: PTHIN 60.5 pg/mL (18.4-80.1)
[2022-07-08 09:38] LABS: V-Zoster IgG (Immunity) 1239 index (Immune >165)
== END | disposition home or self-care (01) ==
LOC: MFPLAB 11:28
PROVIDERS: PCP Family Medicine; Referring Provider Family Medicine; Visit Provider Family Medicine
DX: M81.0 Age-related osteoporosis without current pathological fracture (principal); E55.9 Vitamin D deficiency, unspecified; I10 Essential (primary) hypertension; E03.9 Hypothyroidism, unspecified
CPT/HCPCS: 36415; 80053; 82306; 83970; 84443; 85025; 86787

== ENCOUNTER → 2022-12-05 | Outpatient (CLI) | payer MEDICARE, OTHER, SELFPAY ==
[2022-12-05 10:12] LABS: Absolute Lymphocyte Count 1.49 X10^3/uL (0.83-4.51); Absolute Neutrophil Count 3.9 X10^3/uL (2.0-7.7); Basophil# 0.05 X10^3/uL; Basophil% 0.8 % (0-1); Eosinophil# 0.12 X10^3/uL; Hematocrit 41.4 % (37-47); Hemoglobin 13.6 g/dL (12.0-15.0); Lymphocyte # 1.49 X10^3/ul (0.83-4.51); Lymphocyte % 24.4 % (19-41); Mean Corp Hgb Conc 32.9 g/dL (32-36); Mean Corpuscular Hgb 30.7 pg (27.0-32.0); Mean Corpuscular Volume 93.5 fL (81-99); Mean Platelet Vol. 11.8 fl (6.2-12.0); Monocyte# 0.58 X10^3/uL; Monocyte% 9.5 % (0-10); NRBC Flagged by Analyzer 0 % (0-5); Neutrophil # 3.85 X10^3/uL (2.7-7.7); Platelet Count 274 K/mm3 (150-450); RBC Distribution Width CV 12.9 % (11.6-14.6); RBC Distribution Width SD 44.3 fl (35.1-43.9); Red Blood Count 4.43 M/mm3 (4.2-5.4); White Blood Count 6.1 K/mm3 (4.4-11.0)
[2022-12-05 10:45] LABS: PTHIN 51.9 pg/mL (18.4-80.1)
[2022-12-05 10:48] LABS: Vitamin D,25 Hydroxy 35.6 ng/mL
[2022-12-05 11:09] LABS: AST(SGOT) 15 U/L (15-37); Alanine Aminotransfer ALT/SGPT 21 U/L (13-56); Albumin, Serum 3.4 g/dL (3.2-5.0); Alkaline Phosphatase 86 U/L (45-117); Anion Gap 7 (5-15); BUN 16 mg/dL (7-18); BUN/Creat Ratio 21.3 RATIO (10-20); Calcium,Total 9.1 mg/dL (8.5-10.1); Chloride 102 mmol/L (98-107); Creatinine, Serum 0.75 mg/dL (0.55-1.02); EST Glomerular Filtration Rate 81 mL/min (>60); Est Glom Filt Rate - Afr Amer 98 mL/min (>60); Globulin 3.5 g/dL (2.2-4.2); Glucose 92 mg/dL (74-106); Potassium 3.7 mmol/L (3.5-5.1); Protein, Total 6.9 g/dL (6.4-8.2); Sodium Level 139 mmol/L (136-145)
[2022-12-05 13:05] LABS: Microalbumin,Random Urine < 5.0 mg/L (NO RANGE EST.)
== END | disposition home or self-care (01) ==
LOC: MFPLAB 08:47
PROVIDERS: PCP Family Medicine; Referring Provider Family Medicine; Visit Provider Family Medicine
DX: M81.0 Age-related osteoporosis without current pathological fracture (principal); M17.9 Osteoarthritis of knee, unspecified; I10 Essential (primary) hypertension
CPT/HCPCS: 36415; 80053; 82043; 82306; 82570; 83970; 85025

== ENCOUNTER → 2023-03-27 | Outpatient (CLI) | payer MEDICARE, OTHER, SELFPAY ==
--- NOTE | 2023-03-27 15:27 | VDLE_ITS ---
Reason For Study: Right leg pain RIGHT LEFT GSV is normal. CFV is compressible, spontaneous, phasic, CFV is compressible, spontaneous, phasic, competent, and demonstrates normal competent and demonstrates normal augmentation. augmentation. FV is compressible, spontaneous, phasic, competent and demonstrates normal augmentation. POP V is compressible, spontaneous, phasic, competent and demonstrates normal augmentation. T/P Trunk is compressible. PTV is compressible. RT PerV is compressible. Procedure This is a venous duplex using B-mode, color flow and spectral Doppler. Exam performed in department. A preliminary report was called and/or faxed to Dr. Brasher. VL/Venous Duplex US, Unilateral Interpretation Summary There is no evidence of right lower extremity deep vein thrombosis. Right great saphenous vein appears patent and compressible segmentally. Normal flow patterns left common f emoral vein Ordering Physician: Concepcion Brasher Referring Physician: Bipin Adams MD Performed By: Maria M Triplett RVT
== END | disposition home or self-care (01) ==
LOC: CVS 15:27
PROVIDERS: PCP Family Medicine; Referring Provider Family Medicine; Visit Provider Family Medicine
DX: M79.661 Pain in right lower leg (principal)
CPT/HCPCS: 93971

== ENCOUNTER → 2023-07-01 | Outpatient (CLI) | payer MEDICARE, OTHER, SELFPAY ==
[2023-07-01 15:22] LABS: Absolute Neutrophil Count 8.7 X10^3/uL (2.0-7.7); Basophil# 0.03 X10^3/uL; Basophil% 0.3 % (0-1); Eosinophil# 0.04 X10^3/uL; Eosinophils% 0.4 % (0-5); Hematocrit 41.5 % (37-47); Hemoglobin 13.5 g/dL (12.0-15.0); Lymphocyte % 6.3 % (19-41); Mean Corp Hgb Conc 32.5 g/dL (32-36); Mean Corpuscular Hgb 30.4 pg (27.0-32.0); Mean Corpuscular Volume 93.5 fL (81-99); Mean Platelet Vol. 12.1 fl (6.2-12.0); Monocyte# 0.17 X10^3/uL; Monocyte% 1.8 % (0-10); NRBC Flagged by Analyzer 0 % (0-5); Neutrophil # 8.72 X10^3/uL (2.7-7.7); Neutrophil % 90.8 % (47-70); POSITIVE DIFFERENTIAL YES; Platelet Count 245 K/mm3 (150-450); RBC Distribution Width CV 13.1 % (11.6-14.6); RBC Distribution Width SD 44.7 fl (35.1-43.9); Red Blood Count 4.44 M/mm3 (4.2-5.4); White Blood Count 9.6 K/mm3 (4.4-11.0)
[2023-07-01 15:23] LABS: Differential Indicated SCAN CRITERIA MET
[2023-07-01 15:57] LABS: ALB/GLOB Ratio 0.9 RATIO (0.9-2.4); AST(SGOT) 18 U/L (15-37); Alanine Aminotransfer ALT/SGPT 25 U/L (13-56); Albumin, Serum 3.6 g/dL (3.2-5.0); Alkaline Phosphatase 79 U/L (45-117); Anion Gap 7 (5-15); BUN 18 mg/dL (7-18); BUN/Creat Ratio 23.8 RATIO (10-20); Calcium,Total 8.8 mg/dL (8.5-10.1); Chloride 108 mmol/L (98-107); Creatinine, Serum 0.76 mg/dL (0.55-1.02); EST Glomerular Filtration Rate 80 mL/min (>60); Est Glom Filt Rate - Afr Amer 97 mL/min (>60); Globulin 3.8 g/dL (2.2-4.2); Glucose 118 mg/dL (74-106); Potassium 3.9 mmol/L (3.5-5.1); Protein, Total 7.4 g/dL (6.4-8.2); Sodium Level 138 mmol/L (136-145); T4 Free Direct 1.62 ng/dL (0.76-1.46); Thyroid Stim Hormone (TSH) 1.12 uIU/mL (0.358-3.74)
[2023-07-01 16:19] LABS: Anisocytosis RARE; Macrocytosis RARE; Platelet Estimate ADEQUATE (ADEQ); Red Cell Morphology N CHROM NORMAL (NORM C&C)
== END | disposition home or self-care (01) ==
PROVIDERS: PCP Family Medicine; Referring Provider Family Medicine; Visit Provider Family Medicine
DX: L25.9 Unspecified contact dermatitis, unspecified cause (principal); I10 Essential (primary) hypertension; E03.9 Hypothyroidism, unspecified
CPT/HCPCS: 36415; 80053; 84439; 84443; 85025

== ENCOUNTER → 2023-08-01 | Outpatient (CLI) | payer MEDICARE, OTHER, SELFPAY ==
--- NOTE | 2023-08-01 15:30 | BI_ITS ---
MAMMOGRAPHY - BILATERAL SCREENING REASON FOR EXAM: Female, 73 years old. Routine annual screening examination. PERTINENT HISTORY: Non-contributory. TECHNIQUE: Digital bilateral breast juli (3D mammographic acquisition) in the CC and MLO projections. 2-D mediolateral oblique (MLO) and craniocaudad (CC) views of both breasts were obtained. CAD: Full Field Digital Mammography with Computer Added Detection was performed. COMPARISON: Comparison is made with prior study dated July 11, 2021 and July 05, 2020. FINDINGS: Breast Composition: The breasts are heterogeneously dense, which may obscure small masses. There are no dominant masses or suspicious calcifications. No other significant abnormalities are identified. There has been no significant change since the prior study. BI/SCRN MAMM (CAD)W/JULI BILAT IMPRESSION: Stable bilateral screening mammogram. Yearly follow-up mammogram recommended. (A) ASSESSMENT CATEGORY: BIRADS Category 1: Negative. A letter regarding these results will be sent to the patient by the facility within 30 days. Approximately 10% of breast cancers are not detected by mammography. A normal mammogram should not delay biopsy of a clinically suspicious abnormality. [id number] Electronically Signed: Jaciel Isabel MD at 8:37 EDT ,
--- NOTE | 2023-08-01 15:32 | BD_ITS ---
STUDY: DUAL ENERGY X-RAY ABSORPTIOMETRY / DXA REASON FOR EXAM: Female, 73 years old. M810 TECHNIQUE: Bone Mineral Density (BMD) measurements of lumbar spine and bilateral hips were obtained. COMPARISON: Comparison is made with prior study July 05, 2020. FINDINGS: Lumbar Spine (L1-L4): g/cm2 (0.934) / T-score (-0.8) / Z-score (1.4) Findings are suggestive of normal bone density with a low fracture risk. Left Femur Total: g/cm2 (0.784) / T-score (-1.3) / Z-score (0.3) Left Femoral Neck: g/cm2 (0.492) / T-score (-3.2) / Z-score (-1.3) Right Femur Total: g/cm2 (0.791) / T-score (-1.2) / Z-score (0.3) Right Femoral Neck: g/cm2 (0.614) / T-score (-2.1) / Z-score (-0.2) The T-Scores on the most recent prior examination were: Lumbar Spine (L1-L4): There has been worsening of bone density since the previous examination. Left Femur Total: which represents an improvement of 1.8%. Right Femur Total: which represents an improvement of 0.7%. BD/Dexa Bone Density Study IMPRESSION: The patient is considered osteoporotic as outlined below according to World Yonas Organization (WHO) criteria with a high fracture risk. There has been improvement of bone density since the previous examination. Reference Information: The T-score is the number of standard deviations above or below the standard which is normal for young adults at their peak bone mineral density. The World Health Organization (WHO) interprets the T-scores as follows: Above -1 Normal bone density Between -1 and -2.5 Osteopenia Equal to / or below -2.5 Osteoporosis As a practical clinical guideline, osteopenia may be graded as follows: Mild -1 through -1.5 Moderate -1.6 through -2.0 Severe -2.1 through -2.4 The Z-score is the number of standard deviations above or below age-matched controls. A Z-score of less than -1.5 would be considered abnormal. References: 1. NIH Osteoporosis and Related Bone Diseases www osteo.org 2. International Society for Clinical Densitometry www iscd.org 3. National Osteoporosis Foundation www nof.org Electronically Signed: Jaciel Isabel MD at 15:31 EDT ,
== END | disposition home or self-care (01) ==
LOC: OPBD 15:29
PROVIDERS: PCP Family Medicine; Referring Provider Nurse Practitioner Family; Visit Provider Nurse Practitioner Family
DX: Z12.31 Encounter for screening mammogram for malignant neoplasm of breast (principal); M81.0 Age-related osteoporosis without current pathological fracture
CPT/HCPCS: 77063; 77067; 77080

== ENCOUNTER → 2024-03-20 | Outpatient (CLI) | payer MEDICARE, OTHER, SELFPAY ==
[2024-03-20 13:10] LABS: ALB/GLOB Ratio 1.1 RATIO (0.9-2.4); AST(SGOT) 18 U/L (15-37); Alanine Aminotransfer ALT/SGPT 25 U/L (13-56); Albumin, Serum 3.6 g/dL (3.2-5.0); Alkaline Phosphatase 75 U/L (45-117); Anion Gap 9 (5-15); BUN 18 mg/dL (7-18); BUN/Creat Ratio 28.4 RATIO (10-20); Calcium,Total 9.1 mg/dL (8.5-10.1); Chloride 106 mmol/L (98-107); Creatinine, Serum 0.63 mg/dL (0.55-1.02); EST Glomerular Filtration Rate 98 mL/min (>60); Est Glom Filt Rate - Afr Amer 119 mL/min (>60); Globulin 3.4 g/dL (2.2-4.2); Glucose 102 mg/dL (74-106); Potassium 4.1 mmol/L (3.5-5.1); Sodium Level 140 mmol/L (136-145)
== END | disposition home or self-care (01) ==
LOC: MFPLAB 10:36
PROVIDERS: PCP Family Medicine; Visit Provider Family Medicine
DX: I10 Essential (primary) hypertension (principal)
CPT/HCPCS: 36415; 80053

== ENCOUNTER → 2024-08-03 | Outpatient (CLI) | payer MEDICARE, OTHER, SELFPAY ==
--- NOTE | 2024-08-03 14:30 | BI_ITS ---
MAMMOGRAPHY - BILATERAL SCREENING REASON FOR EXAM: Female, 74 years old. Routine annual screening examination. PERTINENT HISTORY: Non-contributory. TECHNIQUE: Digital bilateral breast juli (3D mammographic acquisition) in the CC and MLO projections. 2-D mediolateral oblique (MLO) and craniocaudad (CC) views of both breasts were obtained. CAD: Full Field Digital Mammography with Computer Added Detection was performed. COMPARISON: Comparison is made with prior study August 01, 2023 and July 11, 2021. FINDINGS: Breast Composition: The breasts are heterogeneously dense, which may obscure small masses. There are no dominant masses or suspicious calcifications. No other significant abnormalities are identified. There has been no significant change since the prior study. BI/SCRN MAMM (CAD)W/JULI BILAT IMPRESSION: Stable bilateral screening mammogram. Yearly follow-up mammogram recommended. (A) ASSESSMENT CATEGORY: BIRADS Category 1: Negative. A letter regarding these results will be sent to the patient by the facility within 30 days. Approximately 10% of breast cancers are not detected by mammography. A normal mammogram should not delay biopsy of a clinically suspicious abnormality. [id number] Electronically Signed: Jaciel Isabel MD at 15:31 EDT ,
--- OUTSIDE RECORDS SUMMARY | 2024-08-03 18:38 | XMS RPT_ITS | CCD ---
Author Organization [facility] Care Team Providers Care Director Property Name Role Phone SILVIA VAZQUEZ JR. Unavailable Unavailable SILVIA VAZQUEZ JR. Unavailable Unavailable SILVIA VAZQUEZ JR. Unavailable Unavailable SILVIA VAZQUEZ JR. Unavailable Unavailable Results Test Name Value Interpretation Reference Range Facil ity MA MAMMOGRAM SCREENING BILAT ERAL W/TOMOon 07-28-2018 MA MAMMOGRAM SCREENING BILATERAL W/JULI ORIGINALFROM:[address] [address]Hdidm: [phone] PROCEDURE FOR:SHOSHANA MORA[address] [place], [place] [address]Scbb: [phone]#: [id number]#: [id number]#: [id number]: 1950ge: 68 TO:SILVIA VAZQUEZ [id number] [place] [address] #[id number] BILATERAL DIGITAL SCREENING MAMMOGRAM 3D/2D WITH CAD WITH MEDIOLATERAL OBLIQUE CRANIOCAUDAL: 07/28/2018 Comparison is made to exams dated: 07/24/2017 mammogram and 07/23/2016 mammogram - [facility]. There are scattered fibroglandular elements in both breasts. Current study was also evaluated with a Computer Aided Detection (CAD) system. No significant masses, calcifications, or other findings are seen in either breast. There has been no significant interval change. IMPRESSION: NEGATIVEThere is no mammographic evidence of malignancy. A 1 year screening mammogram is recommended.( 019) Mariusz Griffin M.D., F.A.C.R. tbp/penrad: 8 16:35:08 Auto Design Detailer(s): RT DMITRY (R)(M), [facility]: Normal BI-RADS 1&2 Mammogram BI-RADS: 1 Negative Normal [facility] [place]) .GFRon 07-10-2018 GFR 95 ml/min/1.73sqm Normal [facility] ([place]) Comment on above: Result Comment: GFR Population mean for , Non- Americans Ages 20-29 = 116 mL/min/1.73 sq.m. Ages 30-39 = 107 mL/min/1.73 sq.m. Ages 40-49 = 99 mL/min/1.73 sq.m. Ages 50-59 = 93 mL/min/1.73 sq.m. Ages 60-69 = 85 mL/min/1.73 sq.m. Ages 70+ = 75 mL/min/1.73 sq.m.Chronic Kidney Disease: Less than 60 mL/min/1.73 square metersEnd Stage Renal Disease: Less than 15 mL/min/1.73 square meters Performed By: #### H GMP ####[address] [place], [place] [address]#### CMP, LIPID, GFR, TSH ####[place] [address] GFR Non- 79 ml/min/1.73sqm Normal [facility] ([place]) Comment on above: Result Comment: GFR Population mean for , Non- Americans Ages 20-29 = 116 mL/min/1.73 sq.m. Ages 30-39 = 107 mL/min/1.73 sq.m. Ages 40-49 = 99 mL/min/1.73 sq.m. Ages 50-59 = 93 mL/min/1.73 sq.m. Ages 60-69 = 85 mL/min/1.73 sq.m. Ages 70+ = 75 mL/min/1.73 sq.m.Chronic Kidney Disease: Less than 60 mL/min/1.73 square metersEnd Stage Renal Disease: Less than 15 mL/min/1.73 square meters Performed By: #### H GMP ####[facility] [place] [address]#### CMP, LIPID, GFR, TSH ####[address] [address] CMPon 07-10-2018 Albumin mass conc 3.7 G/dL Normal 3.4-4.8 [facility] ([place]) Comment on above: Performed By: #### H GMP ####[place] [address]#### CMP, LIPID, GFR, TSH ####[place] [address] Albumin/Globulin mass ratio 1.2 {ratio} Normal 1.1-2.5 [facility] ([place]) Comment on above: Performed By: #### H GMP ####[place] [address]#### CMP, LIPID, GFR, TSH ####[address] [address] ALP enzyme act/vol 91 U/L Normal 40-135 [facility] ([place]) Comment on above: Performed By: #### H GMP ####[place] [address]#### CMP, LIPID, GFR, TSH ####[place] [address] ALT enzyme act/vol 31 U/L Normal 10-35 [facility] ([place]) Comment on above: Performed By: #### H GMP ####[place] [address]#### CMP, LIPID, GFR, TSH ####[address] [address] AST enzyme act/vol 20 U/L Normal 10-40 [facility] ([place]) Comment on above: Performed By: #### H GMP ####[place] [address]#### CMP, LIPID, GFR, TSH ####[address] [address] Bili Total 1.6 mg/dL High 0.2-1.0 [facility] ([place]) Comment on above: Performed By: #### H GMP ####[place] [address]#### CMP, LIPID, GFR, TSH ####[place] [address] Calcium mass conc 9.4 mg/dL Normal 8.4-10.2 [facility] ([place]) Comment on above: Performed By: #### H GMP ####[place] [address]#### CMP, LIPID, GFR, TSH ####[place] [address] Chloride molar conc 105 mmol/L Normal 98-107 [facility] ([place]) Comment on above: Performed By: #### H GMP ####[place] [address]#### CMP, LIPID, GFR, TSH ####[place] [address] CO2 molar conc 30 mmol/L Normal 23-31 [facility] ([place]) Comment on above: Performed By: #### H GMP ####[place] [address]#### CMP, LIPID, GFR, TSH ####[place] [address] Creatinine mass conc 0.74 mg/dL Normal 0.55-1.02 [facility] ([place]) Comment on above: Performed By: #### H GMP ####[place] [address]#### CMP, LIPID, GFR, TSH ####[place] [address] Electrolyte Balance 6.0 mEq/L Normal [facility] ([place]) Comment on above: Performed By: #### H GMP ####[place] [address]#### CMP, LIPID, GFR, TSH ####[address] [place], [place] [address] Globulin Calculated mass conc (S) 3.0 G/dL Normal [facility] ([place]) Comment on above: Performed By: #### H GMP ####[place] [address]#### CMP, LIPID, GFR, TSH ####[address] [address] Glucose mass conc 96 mg/dL Normal 80-115 [facility] ([place]) Comment on above: Performed By: #### H GMP ####[place] [address]#### CMP, LIPID, GFR, TSH ####[address] [address] Potassium molar conc 4.6 mmol/L Normal 3.5-5.1 [facility] ([place]) Comment on above: Performed By: #### H GMP ####[place] [address]#### CMP, LIPID, GFR, TSH ####[address] [address] Protein mass conc 6.7 G/dL Normal 6.4-8.2 [facility] ([place] Comment on above: Performed By: #### H GMP ####[place] [address]#### CMP, LIPID, GFR, TSH ####[address] [address] Sodium molar conc 141 mmol/L Normal 136-145 [facility] ([place] Comment on above: Performed By: #### H GMP ####[address] [address]#### CMP, LIPID, GFR, TSH ####[address] [address] Urea nitrogen mass conc 20 mg/dL High 7-18 [facility] ([place] Comment on above: Performed By: #### H GMP ####[place] [id number]#### CMP, LIPID, GFR, TSH ####[place] [address] Urea nitrogen/Creatinine mass ratio 27 ratio Normal 7-27 [facility] ([place] Comment on above: Performed By: #### H GMP ####[place] [address]#### CMP, LIPID, GFR, TSH ####[place] [address] HGMPon 07-10-2018 Erythrocyte distribution width Auto Ratio (RBC) 13.6 % Normal 11.5-14.5 [facility] ([place] Comment on above: Performed By: #### H GMP ####[place] [address]#### CMP, LIPID, GFR, TSH ####[place] [address] Hematocrit Auto Volume Fraction (Bld) 40.7 % Normal 37.0-47.0 [facility] ([place] Comment on above: Performed By: #### H GMP ####[place] [address]#### CMP, LIPID, GFR, TSH ####[place] [address] Hemoglobin mass conc (Bld) 13.6 G/dL Normal 12.0-16.0 [facility] ([place] Comment on above: Performed By: #### H GMP ####[place] [address]#### CMP, LIPID, GFR, TSH ####[place] [address] MCH Auto Entitic mass (RBC) 30.0 pg Normal 27.0-31.2 [facility] ([place] Comment on above: Performed By: #### H GMP ####[place] [address]#### CMP, LIPID, GFR, TSH ####[place] [address] MCHC Auto mass conc (RBC) 33.5 G/dL Normal 33.0-37.0 [facility] ([place]) Comment on above: Performed By: #### H GMP ####[place] [address]#### CMP, LIPID, GFR, TSH ####[address] [address] MCV Auto Entitic volume (RBC) 89.5 fL Normal 80.0-94.0 [facility] ([place] Comment on above: Performed By: #### H GMP ####[place] [address]#### CMP, LIPID, GFR, TSH ####[place] [address] Platelet mean volume Auto Entitic volume (Bld) 10.1 fL Normal 7.4-10.4 [facility] ([place] Comment on above: Performed By: #### H GMP ####[place] [address]#### CMP, LIPID, GFR, TSH ####[place] [address] Platelets Auto #/vol (Bld) 260 10 3/mcL Normal 130-400 [facility] ([place] Comment on above: Performed By: #### H GMP ####[place] [address]#### CMP, LIPID, GFR, TSH ####[place] [address] RBC Auto #/vol (Bld) 4.55 10 6/mcL Normal 4.20-5.40 [facility] ([place] Comment on above: Performed By: #### H GMP ####[place] [address]#### CMP, LIPID, GFR, TSH ####[address] [address] WBC Auto #/vol (Bld) 6.90 10 3/mcL Normal 4.60-10.80 [facility] ([place]) Comment on above: Performed By: #### H GMP ####[place] [address]#### CMP, LIPID, GFR, TSH ####[facility] [place] [address] LIPIDon 07-10-2018 Cholesterol in HDL mass conc 42 mg/dL Normal 40-60 [facility] ([place] Comment on above: Performed By: #### H GMP ####[facility] [place] [address]#### CMP, LIPID, GFR, TSH ####[address] [address] Cholesterol in LDL mass conc 131 mg/dL High 0-130 [facility] ([place] Comment on above: Performed By: #### H GMP ####[place] [address]#### CMP, LIPID, GFR, TSH ####[address] [address] Cholesterol mass conc 183 mg/dL Normal 0-200 [facility] ([place] Comment on above: Result Comment: Chol esterol Reference Interval:Less than 200 [id number] Borderline high [id number] and above High risk Performed By: #### H GMP ####[place] [address]#### CMP, LIPID, GFR, TSH ####[address] [address] Triglyceride mass conc 51 mg/dL Normal 0-150 [facility] ([place] Comment on above: Result Comment: Trig lyceride Reference Interval:Less than 150 [id number] Borderline high [id number] High [id number] or higher Very high risk Performed By: #### H GMP ####[facility] [place] [address]#### CMP, LIPID, GFR, TSH ####[address] [address] TSHon 07-10-2018 Thyrotropin Qn 1.94 mcIU/mL Normal 0.36-3.74 [facility] ([place] Comment on above: Performed By: #### H GMP ####[place] [address]#### CMP, LIPID, GFR, TSH ####[facility] [place] [address] Encounters Encounter Date Encounter Type Care Provider Facility Start: 07-28-2018 End: 07-29-2018 Patient encounter SILVIA VAZQUEZ [facility] Start: 07-10-2018 End: 07-11-2018 Patient encounter SILVIA VAZQUEZ [facility] Payers Date Payer Category Payer Medicare [id number] 2018 Unknown [id number] 1950 Unknown [id number] 1950 Unknown [id number] Summary Purpose Family History No Family History Records Found Advance Directives No Advanced Directives Records Found Additional Source Comments INFORMATION SOURCE (unrecogn ized section and content) DATE CREATED AUTHOR 08/27/2018 [facility] ([place]) FOR RECORDS PERTAINING TO PATIENTS WHO ARE OR HAVE BEEN ENROLLED IN A CHEMICAL DEPENDENCY/SUBSTANCEABUSE PROGRAM, SOME INFORMATION MAY BE OMITTED. This clinical summary was aggregated from multiple sources. Caution should be exercised in using it in the provision of clinical care. This summary normalizes information from multiple sources, and as a consequence, information in this document may materially change the coding, format and clinical context of patient data. In addition, data may be omitted in some cases. CLINICAL DECISIONS SHOULD BE BASED ON THE PRIMARY CLINICAL RECORDS. [employer] [facility]. provides no warranty or guarantee of the accuracy or completeness of information in this document.
== END | disposition home or self-care (01) ==
LOC: OPBI 14:29
PROVIDERS: PCP Family Medicine; Referring Provider Family Medicine; Visit Provider Family Medicine
DX: Z12.31 Encounter for screening mammogram for malignant neoplasm of breast (principal)
CPT/HCPCS: 77063; 77067

== ENCOUNTER → 2025-01-07 | Outpatient (CLI) | payer MEDICARE, OTHER, SELFPAY ==
[2025-01-07 18:34] LABS: ALB/GLOB Ratio 1.4 RATIO (0.9-2.4); AST(SGOT) 21 U/L (<=31); Alanine Aminotransfer ALT/SGPT 18 U/L (<=34); Albumin, Serum 4.2 g/dL (3.4-4.8); Alkaline Phosphatase 90 U/L (35-104); Anion Gap 12 (5-15); BUN 15 mg/dL (4-19); BUN/Creat Ratio 21.4 RATIO (10-20); Calcium,Total 9.5 mg/dL (7.6-11.0); Carbon Dioxide 23.9 mmol/L (21.0-32.0); Chloride 105 mmol/L (98-108); Creatinine, Serum 0.68 mg/dL (0.70-1.20); EST Glomerular Filtration Rate 93 (>60); Globulin 3.1 g/dL (2.2-4.2); Glucose 98 mg/dL (70-99); Potassium 4.5 mmol/L (3.3-5.1); Protein, Total 7.2 g/dL (5.9-8.4); Sodium Level 140 mmol/L (133-145); Total Bilirubin 1.33 mg/dL (0.00-1.30)
[2025-01-07 20:14] LABS: Microalbumin,Random Urine < 12.0 mg/L (NO RANGE EST.); Microalbumin:Creatinine Ratio UNABLE TO CALCULATE mg/g CRE
== END | disposition home or self-care (01) ==
LOC: MFPLAB 14:39
PROVIDERS: PCP Family Medicine; Referring Provider Family Medicine; Visit Provider Family Medicine
DX: I10 Essential (primary) hypertension (principal); E03.9 Hypothyroidism, unspecified
CPT/HCPCS: 36415; 80053; 82043; 82570; 84439; 84443

== ENCOUNTER 2025-04-27 03:06 | Emergency (ER) | payer MEDICARE, OTHER, SELFPAY ==
[2025-04-27 03:09] VITALS: BP 170/89; PULSE 96; RESP 18; TEMP 36.7; O2SAT 96; BMI 42.4
[2025-04-27 03:18] VITALS: BP 146/86; PULSE 95; RESP 18
--- NOTE | 2025-04-27 03:20 | EKG12_ITS ---
Test Reason : DYSRHYTHMIA Blood Pressure : */* mmHG Vent. Rate : 86 BPM Atrial Rate : 86 BPM P-R Int : 136 ms QRS Dur : 82 ms QT Int : 356 ms P-R-T Axes : 31 -9 27 degrees QTcB Int : 426 ms Normal sinus rhythm Left ventricular hypertrophy with repolarization abnormality ( R in aVL ) Abnormal ECG Confirmed by Foreign Alas ([id number]), restaurant expeditor RACHEL HOWELL ([id number]) on 04/28/2025 1:45:26 PM Referred By: Confirmed By: Foreign Alas
--- NOTE | 2025-04-27 03:20 | CT_ITS ---
PROCEDURE: ABDOMEN/PELVIS W IV CONT ONLY 04/27/2025 REASON FOR EXAM: R BACK PAIN TECHNIQUE: ABDOMEN/PELVIS W IV CONT ONLY Coronal and Sagittal reconstruction series were provided. CONTRAST: Isovue 370 VOLUME: 92 mL One or more dose reduction techniques were used (e.g., Automated exposure control, adjustment of the mA and/or kV according to patient size, use of iterative reconstruction technique. RADIATION DOSE SUMMARY: CTDlvol: 44 mGy DLP: 1321 mGycm COMPARISON: 09/21/2019 FINDINGS: Under aerated lung bases. Normal heart size. Diffuse hepatic steatosis. Status post cholecystectomy. Unremarkable pancreas, spleen, adrenal glands. 2 mm right renal calcification. Delayed nephrogram on the left. Mild left pelvicaliceal fullness but no hydroureter or ureteral stone.. Mild right-sided renal pelvic fullness nondistended ureter and no ureteral stone. Normal bladder. Status post hysterectomy. No retroperitoneal or pelvic adenopathy. No free air. Small hiatal hernia. Nondistended bowel. Normal appendix. Multiple diverticula. Lumbar spine scoliosis and degeneration. No acute abdominal wall findings. CT/Abdomen/Pelvis W IV Cont ONLY IMPRESSION: Possible very mild bilateral UPJ anomalies. No definite acute findings. Reading Location: [place] [address]
--- NOTE | 2025-04-27 03:21 | EDS_ITS ---
HPI History of Present Illness Chief Complaint: Back Narrative Narrative: Patient is a 75-year-old female past medical history of spinal stenosis, kidney stones, scoliosis who presents to the emergency department with a chief complaint of back pain. Patient states that she has had back pain off and on for a significant amount of time now for a few months and notes that last 2 to 3 weeks her back pain has significantly worsened. She states that recently on Saturday she followed up with [facility] and was given oral prednisone as well as a injection in her back. States that she was told to give this 2 weeks. She notes that her pain is worse with movement. Patient states that she has been urinating normally for self having normal bowel movements denies any fevers. [facility] Medical History Scoliosis Spinal stenosis Kidney stones Home Medications ?Medication ?Instructions ?Recorded ?Last Taken ?Type calcium 600 mg (as 2 ea PO DAILY 03/22/15 Unkno wn History carbonate)-vitamin D3 20 mcg (800 unit) tablet levothyroxine 112 mcg tablet 112 mcg PO DAILY 03/22/15 Unknown History lisinopril 20 mg tablet 20 mg PO DAILY 03/22/15 06/12/19 05:30 History multivitamin with folic acid 400 1 tab PO DAILY Unknown History mcg tablet (Thera) potassium citrate 10 mEq (1,080 20 meq PO DAILY Unknown History mg) tablet,extended release (Urocit-K 10) ibuprofen 600 mg tablet 600 mg PO Q6H PRN PRN Pain O r 09/21/19 Unknown Rx Fever #20 tabs ondansetron 4 mg disintegrating 4 mg PO Q8H PRN PRN Na usea #10 tabs 09/21/19 Unknown Rx tablet cyclobenzaprine 10 mg tablet 10 mg PO TID PRN muscle s pasm #14 04/27/25 Unknown Rx tabs famotidine 40 mg tablet 40 mg PO DAILY PRN UPSET STO MACHE 04/27/25 Unknown History ibandronate 150 mg tablet 150 mg PO QMONTH 04/27/25 Un known History lidocaine 5 % topical patch 1 patch topical DAILY #15 ea 04/27/25 Unknown Rx methylprednisolone 4 mg tablets in PO 04/27/25 Unknown History a dose pack ondansetron 4 mg disintegrating 4 mg PO Q6H PRN nausea and 04/27/25 Unknown Rx tablet vomiting #20 tabs oxycodone-acetaminophen 5 mg-325 1 tab PO Q6H PRN pain 2 days #8 04/27/25 Unknown Rx mg tablet (Endocet) tabs Allergy/AdvReac Type Severity Reaction Status Date / Time adhesive tape AdvReac Other Verified 04/27/25 03:06 Social History Smoking Status: Never smoker ROS ROS ED ROS Narrative Constitutional: Denies any fevers or chills, headaches Cardiovascular: Denies chest pain Respiratory: Denies shortness of breath Abdomen: Denies nausea vomiting diarrhea : Denies any urinary symptoms Neurological: Denies any numbness, weakness, tingling Musculoskeletal: Complains of right lower back pain does not radiate anywhere as noted above Skin: Denies any rashes or lesions EXAM Physical Exam Narrative Exam Narrative: General: Patient was lying in bed rest comfortably did not appear to be acute distress Head: Atraumatic, normocephalic Eyes: PERRL bilaterally, EOMI bilateral, no conjunctival injection noted Neck: Soft, supple, trachea midline Cardiovascular: Regular rate and rhythm no murmurs gallops rubs noted Respiratory: Clear to auscultation bilaterally Abdomen: Soft, nondistended, no tender to palpation Extremities: +4/5 strength noted in the bilateral lower extremities, +5/5 strength noted in the bilateral upper extremities Neurological: Patient follow commands that she was at [facility] the year is 2024. Sensation grossly intact no saddle anesthesia noted Skin: Warm, dry, intact no rashes or lesions noted Const Vital Signs: 04/27/25 03:09 04/27/25 03:18 Temperature 98.0 F Temperature Source Oral Pulse Rate 96 95 Respiratory Rate 18 18 Blood Pressure 170/89 H 146/86 H Blood Pressure Mean 116 106 Pulse Ox 96 Oxygen Delivery Method Room Air MDM MDM MDM Narrative Medical decision making narrative: Patient is a 75-year-old female who presents to the emergency department the chief complaint of low back pain. On the differential diagnosis includes but not limited to UTI, pyelonephritis, urolithiasis, AAA, pathological fracture, herniated disc, musculoskeletal strain. Once the workup is obtained reviewed she will be reevaluated. Patient be given IV fluids morphine Zofran. New patient CBC reviewed and showed no evidence leukocytosis white blood count normal 10.1, hemoglobin was stable at 13.8, platelet count normal at 244. Patient sodium normal 138, potassium normal 4.5, creatinine was 0.81. Patient's AST and ALT were 19 and 17 respectively total bilirubin normal at 1, lipase normal at 58. Patient's urinalysis reviewed showed negative nitrites negative leukocyte esterase 3-5 white blood cells with 1+ bacteria no indication for antibiotics at this point in time. Patient CT abdomen pelvis with IV contrast showed possible very mild bilateral UPJ anomalies no definitive acute findings noted. Patient was still having some pain therefore she was given IV Norflex. I reevaluate the patient and she states that she is having pain when attempting to move. I offered her admission for observation for PT OT evaluation and pain control with potential placement she states that she does not want to be placed into a facility therefore she would like to go home. Patient be given prescriptions for cyclobenzaprine, Endocet, Zofran, Lidoderm patch and cyclobenzaprine. She is also advised to rotate Tylenol and ibuprofen [id number] for mild to moderate pain. She was encouraged to follow-up with her orthopedic surgeon per setting return with worsening symptoms or any concerns. She is agreeable to plan all question concerns answered she was discharged home in stable condition. Lab Data Labs: Laboratory Results - last 24 hr 04/27/25 04/27/25 04/27/25 03:30 03:42 04:04 WBC 10.7 10.1 RBC 4.62 4.66 Hgb 14.0 13.8 Hct 41.4 42.2 MCV 89.6 90.6 MCH 30.3 29.6 MCHC 33.8 32.7 RDW Std Deviation 43.2 43.8 RDW Coeff of Yovana 13.1 13.2 Plt Count 265 244 MPV 11.3 11.5 Immature Gran % (Auto) 1.000 H 1.100 H Neut % (Auto) 82.5 H 82.2 H Lymph % (Auto) 10.8 L 10.9 L [place] % (Auto) 5.3 5.4 Eos % (Auto) 0.0 0.1 Baso % (Auto) 0.4 0.3 Absolute Neuts (auto) 8.8 H 8.3 H Absolute Lymphs (auto) 1.15 1.10 Nucleated RBC % 0 0 Sodium 138 Potassium 4.5 Chloride 104 Carbon Dioxide 22.4 Anion Gap 12 BUN 26 H Creatinine 0.81 Estim Creat Clear Calc 73.16 Est GFR (MDRD) Non-Af 76 BUN/Creatinine Ratio 32.4 H Glucose 142 H Calcium 9.3 Total Bilirubin 1.00 AST 19 ALT 17 Alkaline Phosphatase 86 Total Protein 7.2 Albumin 4.2 Globulin 3.0 Albumin/Globulin Ratio 1.4 Lipase 58 Urine Color Yellow Urine Clarity Clear Urine pH 6.0 Ur Specific [place] 1.010 Urine Protein Negative Urine Glucose (UA) Normal Urine Ketones Negative Urine Occult Blood 10 H Urine Nitrite Negative Urine Bilirubin Negative Urine Urobilinogen Normal Ur Leukocyte Esterase Negative Urine RBC 0-5 SEEN Urine WBC 0-5 SEEN Ur Squamous Epith Cells 0-5 SEEN Urine Bacteria 1+ Urine Mucus 0 SEEN Radiography Diagnostic Testing: Clinical Impression(s) from Imaging Studies Abdomen/Pelvis CT 04/27/25 03:20 IMPRESSION: Possible very mild bilateral UPJ anomalies. No definite acute findings. Reading Location: [place] [address] Discharge Plan Triage Chief Complaint: Back ED Provider: Ravindra Moffett Dx/Rx/DC Orders Clinical Impression: Back pain, Spinal stenosis, Hypothyroidism Prescriptions: New lidocaine 5 % adhesive patch,medicated 1 patch topical DAILY Qty: 15 0RF Rx Instructions: leave on most painful area for up to 12 hrs oxycodone-acetaminophen [Endocet] 5-325 mg tablet 1 tab PO Q6H PRN (Reason: pain) 2 Days Qty: 8 0RF ondansetron 4 mg tablet,disintegrating 4 mg PO Q6H PRN (Reason: nausea and vomiting) Qty: 20 0RF cyclobenzaprine 10 mg tablet 10 mg PO TID PRN (Reason: muscle spasm) Qty: 14 0RF No Action lisinopril 20 MG tablet 20 mg PO DAILY potassium citrate [Urocit-K 10] 10 MEQ tablet extended release 20 meq PO DAILY levothyroxine 112 MCG tablet 112 mcg PO DAILY multivitamin with folic acid [Thera] 1 TABLET tablet 1 tab PO DAILY calcium carbonate-vitamin D3 1 EACH tablet 2 ea PO DAILY ibuprofen 600 MG tablet 600 mg PO Q6H PRN PRN (Reason: Pain Or Fever) Qty: 20 0RF ondansetron 4 MG tablet 4 mg PO Q8H PRN PRN (Reason: Nausea) Qty: 10 0RF famotidine 40 mg tablet 40 mg PO DAILY PRN (Reason: UPSET STOMACHE) methylprednisolone 4 mg tablets,dose pack PO ibandronate 150 mg tablet 150 mg PO QMONTH Primary Care Provider: Bipin Adams Referrals: Bipin Adams MD [Primary Care Provider] - Activity Restrictions/Additional Instructions: rotate Tylenol and ibuprofen [id number] for mild to moderate pain when you do this you can take something every 3 hours. Max dose of Tylenol in 24 hours 4000 mg max dose of ibuprofen in 24 hours 3200 mg. Use the prescriptions as prescribed do not operate anything under the influence of the muscle relaxer or the narcotic as they can make you sleepy and drowsy. Follow-up with your orthopedic surgeon outpatient setting. Return with worsening symptoms or any concerns. Your blood work did not show any acute findings and your CT scan did not show any acute findings either. Print Language: Samoan Disposition Disposition: Home, Self Care
[2025-04-27 03:37] LABS: Hematocrit 41.4 % (37-47); Hemoglobin 14.0 g/dL (12.0-15.0); Immature Granulocytes Count 0.110 X10^3/uL (0.0-0.0); Mean Corp Hgb Conc 33.8 g/dL (32-36); Mean Corpuscular Volume 89.6 fL (81-99); Mean Platelet Vol. 11.3 fl (6.2-12.0); NRBC Flagged by Analyzer 0 % (0-5); Platelet Count 265 K/mm3 (150-450); RBC Distribution Width CV 13.1 % (11.6-14.6); RBC Distribution Width SD 43.2 fl (35.1-43.9); Red Blood Count 4.62 M/mm3 (4.2-5.4); White Blood Count 10.7 K/mm3 (4.4-11.0)
[2025-04-27 03:48] LABS: Mucous, Urine 0 SEEN /hpf (<or=2+)
[2025-04-27 03:50] LABS: Color, Urine Yellow (Yellow); Glucose, Dipstick Normal (Normal); Ketone-Dipstick Negative (Negative); Leukocyte Esterase-Dipstick Negative /ul (Negative); Nitrite-Dipstick Negative (Negative); Occult Blood-Urine 10 /ul (Negative); Protein-Dipstick Negative (Negative); Specific Gravity, Urine 1.010 (1.002-1.030); Urine Bilirubin Dipstick Negative (Negative)
[2025-04-27] MEDS: 0.9% Normal Saline (1000mL) 1,000 ML 999 ML IV (03:58)
--- OUTSIDE RECORDS SUMMARY | 2025-04-27 04:09 | XMS RPT_ITS | CCD ---
Author Organization [facility] Care Team Providers Care Education Managers Name Role Phone SILVIA VAZQUEZ JR. Unavailable Unavailable SILVIA VAZQUEZ JR. Unavailable Unavailable SILVIA VAZQUEZ JR. Unavailable Unavailable SILVIA VAZQUEZ JR. Unavailable Unavailable Dr. Bipin Adams Primary Care Provider [phone] Dr. Alverto Rey Attending Provider [phone] MD Concepcion Brasher Referring Provider [phone] Bipin Adams MD Primary Care Provider Dr. Bipin Adams MD Attending Provider [phone] Dr. Bipin Adams MD Referring Provider [phone] Bipin Adams Primary Care Unavailable Bipin Adams Attending Unavailable Bipin Adams Referring Unavailable Bipin Adams Primary Care Unavailable Bipin Adams Attending Unavailable Bipin Adams Primary Care Unavailable Bipin Adams Attending Unavailable Bipin Adams Referring Unavailable Allergies Allergy Classification Reported Allergen(s) Allergy Type Date of Onset Reaction(s) Facility (3 sources) Adhesive Tape; Translations: [adhesive tape] Propensity to adverse reactions 05-01-2022 Other [facility] Medications Current Medications Medication Drug Class(es) Dates Sig (Normalized) Sig (Original) calcium carbonate 1500 mg / cholecalciferol 800 unt oral tablet (7 sources) Vitamin D Start: 03-22-2015 Calcium Carbonate-Vitamin D3 1 EACH tablet Active 2 NMA PO DAILY March 22, 2015 12:00am Start: 03-22-2015 Calcium Carbon ate-Vitamin D3 Active 2 EACH PO DAILY March 22, 2015 12:00am ibuprofen 600 mg oral tablet (7 sources) Nonsteroidal Anti-inflammatory Drug Start: 09-21-2019 take 1 tablet by mouth every six hours as needed for pain Ibuprofen 600 MG tablet Active 600 mg PO EVERY 6 HOURS NEEDED as needed for Pain Or Fever September 21, 2019 7:21pm levothyroxine sodium 0.112 mg oral tablet (7 sources) l-Thyroxine Start: 03-22-2015 take 1 tablet by mouth once daily Levothyroxine 112 MCG tablet Active 112 ug PO DAILY March 22, 2015 12:00am lisinopril 20 mg oral tablet (7 sources) Angiotensin Converting Enzyme Inhibitor Start: 03-22-2015 take 1 tablet by mouth once daily Lisinopril 20 MG tablet Active 20 mg PO DAILY March 22, 2015 12:00am Multivitamin With Folic Acid (Thera) 1 TABLET tablet (7 sources) Start: 03-22-2015 take 1 tablet by mouth once daily Multivitamin With Folic Acid (Thera) 1 TABLET tablet Active 1 TABLET PO DAILY March 22, 2015 10:13am Start: 03-22-2015 take 1 tablet by karly th once daily Multivitamin With Folic Acid (Thera) 1 TABLET tablet Active 1 {tbl} PO DAILY March 22, 2015 12:00am Start: 03-22-2015 take 1 tablet by karly th once daily Multivitamin With Folic Acid (Thera) 1 TABLET tablet Active 1 TABLET PO DAILY March 22, 2015 12:00am ondansetron 4 mg disintegrating oral tablet (7 sources) Serotonin-3 Receptor Antagonist Start: 09-21-2019 take 1 tablet by mouth every eight hours as needed for nausea Ondansetron 4 MG tablet Active 4 mg PO EVERY 8 HOURS NEEDED as needed for Nausea September 21, 2019 1:00am potassium citrate 10 meq extended release oral tablet (7 sources) Start: 03-22-2015 Potassium Citrate (Urocit-K) 10 MEQ tablet extended release Active 20 meq PO DAILY March 22, 2015 12:00am tamsulosin hydrochloride 0.4 mg oral capsule (7 sources) alpha-Adrenergic Alanis Start: 09-21-2019 take 1 capsule by mouth once daily Tamsulosin 0.4 MG capsule Active 0.4 mg PO DAILY September 21, 2019 1:00am Completed/Discontinued Medications Medication Drug Class(es) Dates Sig (Normalized) Sig (Original) acetaminophen 325 mg / oxyCODONE hydrochloride 5 mg oral tablet (14 sources) Opioid Agonist Start: 03-29-2015 End: 09-24-2019 Oxycodone-Acetamino phen 1 TABLET tablet Discontinued 1 {tbl} PO EVERY 6 HOURS NEEDED as needed for Pain 12 September 21, 2019 September 23, 2019 1:00am September 24, 2019 1:09am Start: 03-29-2015 End: 09-24-2019 take 1 tablet by mouth every six hours as needed Oxycodone-Acetaminophen Discontinued 1 TABLET PO EVERY 6 HOURS NEEDED 12 September 21, 2019 September 24, 2019 1:09am Problems Active Problems Problem Classification Problem Date Documented Da te Episodic/Chronic Calculus of urinary tract (7 sources) Urolithiasis ; Translations: [Urinary calculus, unspecified] 09-22-2019 Episodic Essential hypertension (1 source) Essential (primary) hypertension; Translations: [Essential (primary) hypertension] Onset: 01-12-2025 Chronic Past or Other Problems Problem Classification Problem Date Documented Da te Episodic/Chronic Other screening for suspected conditions (not mental disorders or infectious disease) (1 source) Encounter for screening mammogram for malignant neoplasm of breast; Translations: [Encounter for screening mammogram for malignant neoplasm of breast] Onset: 08-25-2024 Episodic Results Test Name Value Interpretation Reference Range Facility Albumin DL <= 20 mg/L (U) [M ass/Vol]Ordered By: Bipin Adams on 01-07-2025 Urine Random Microalbumin < 12.0 mg/L NO RANGE EST. [facility] Anion gap in Serum or Plasma Ordered By: Bipin Adams on 01-07-2025 Anion gap [Moles/Vol] 12 mmol/L 5-15 [facility] BUN/creatinine ratioOrdered By: Bipin Adams on 01-07-2025 Urea nitrogen/Creatinine [Mass ratio] 21.4 mg/mg High 10-20 [facility] Bilirubin, totalOrdered By: Bipin Adams on 01-07-2025 Bilirubin [Mass/Vol] 1.33 mg/dL High 0.00-1.30 [facility] Carbon dioxide, total [Moles /volume] in Central venous bloodOrdered By: Bipin Adams on 01-07-2025 CO2 [Moles/Vol] 23.9 mmol/L 21.0-32.0 [facility] Chloride assayOrdered By: Tyler Adams on 01-07-2025 Chloride [Moles/Vol] 105 mmol/L 98-108 [facility] Comprehensive Metabolic Prof ilon 01-07-2025 Albumin [Mass/Vol] 4.2 g/dL Normal 3.4-4.8 [facility] Comment on above: Order Comment: Order Date: 01/07/25 Order Info: 0786-1 - CMP Order Info: 3016-3 - TSH Order Info: 3024-7 - T4F Performed By: #### L 500.4050, L506.0400, L501.9520 #### [facility] [address] [place], [address] Albumin/Globulin [Mass ratio] 1.4 {ratio} Normal 0.9-2.4 [facility] Comment on above: Order Comment: Order Date: 01/07/25 Order Info: 0786-1 - CMP Order Info: 3016-3 - TSH Order Info: 3024-7 - T4F Performed By: #### L 500.4050, L506.0400, L501.9520 #### [facility] [address] [place], [address] ALK PHOS 90 U/L Normal 35-104 [facility] Comment on above: Order Comment: Order Date: 01/07/25 Order Info: 0786-1 - CMP Order Info: 3016-3 - TSH Order Info: 3024-7 - T4F Performed By: #### L 500.4050, L506.0400, [id number] #### [facility] [address] [place], [address] ALT [Catalytic activity/Vol] 18 U/L Normal <=34 [facility] Comment on above: Order Comment: Order Date: 01/07/25 Order Info: 0786-1 - CMP Order Info: 3016-3 - TSH Order Info: 3024-7 - T4F Performed By: #### L 500.4050, L506.0400, L501.9520 #### [facility] [address] [place], [address] AST [Catalytic activity/Vol] 21 U/L Normal <=31 [facility] Comment on above: Order Comment: Order Date: 01/07/25 Order Info: 0786-1 - CMP Order Info: 3016-3 - TSH Order Info: 3024-7 - T4F Performed By: #### L 500.4050, L506.0400, L501.9520 #### [facility] [address] [place], [address] Bilirubin [Mass/Vol] 1.33 mg/dL High 0.00-1.30 [facility] Comment on above: Order Comment: Order Date: 01/07/25 Order Info: 0786-1 - CMP Order Info: 6-3 - TSH Order Info: 3024-7 - T4F Performed By: #### L 500.4050, L506.0400, L501.9520 #### [facility] [address] [place], [address] BUN/CRE 21.4 RATIO High 10-20 [facility] Comment on above: Order Comment: Order Date: 01/07/25 Order Info: 0786-1 - CMP Order Info: 6-3 - TSH Order Info: 3024-7 - T4F Performed By: #### L 500.4050, L506.0400, L501.9520 #### [facility] [address] [place], [address] Calcium [Mass/Vol] 9.5 mg/dL Normal 7.6-11.0 [facility] Comment on above: Order Comment: Order Date: 01/07/25 Order Info: 0786-1 - CMP Order Info: 3016-3 - TSH Order Info: 3024-7 - T4F Performed By: #### L 500.4050, L506.0400, L501.9520 #### [facility] [address] [place], [address] Chloride [Moles/Vol] 105 mmol/L Normal 98-108 [facility] Comment on above: Order Comment: Order Date: 01/07/25 Order Info: 0786-1 - CMP Order Info: 3016-3 - TSH Order Info: 3024-7 - T4F Performed By: #### L 500.4050, L506.0400, L501.9520 #### [facility] [address] [place], [place], [id number] CO2 [Moles/Vol] 23.9 mmol/L Normal 21.0-32.0 [facility] Comment on above: Order Comment: Order Date: 01/07/25 Order Info: 0786-1 - CMP Order Info: 3 - TSH Order Info: 3024-7 - T4F Performed By: #### L 500.4050, L506.0400, L501.9520 #### [facility] [address] [place], [place], [address] Creatinine [Mass/Vol] 0.68 mg/dL Low 0.70-1.20 [facility] Comment on above: Order Comment: Order Date: 01/07/25 Order Info: 0786-1 - CMP Order Info: 3015-12 - TSH Order Info: 3024-7 - T4F Performed By: #### L 500.4050, L506.0400, L501.9520 #### [facility] [address] [place], [place], [address] GAP 12 Normal 5-15 [facility] Comment on above: Order Comment: Order Date: 01/07/25 Order Info: 0786-1 - CMP Order Info: 3 - TSH Order Info: 3024-7 - T4F Performed By: #### L 500.4050, L506.0400, L501.9520 #### [facility] [address] [place], [place], [address] GFR/1.73 sq M.predicted among non-blacks MDRD (S/P/Bld) [Vol rate/Area] 93 mL/min/{1.73_m2} Normal >60 [facility] Comment on above: Order Comment: Order Date: 01/07/25 Order Info: 0786-1 - CMP Order Info: 3 - TSH Order Info: 3023-7 - T4F Result Comment: mL/m in/1.73m2 CKD-EPI Creatinine Equation (2020) Performed By: #### L 500.4050, L506.0400, L501.9520 #### [facility] [address] [place], [address] Globulin (S) [Mass/Vol] 3.1 g/dL Normal 2.2-4.2 [facility] Comment on above: Order Comment: Order Date: 01/07/25 Order Info: 0786-1 - CMP Order Info: 3 - TSH Order Info: 7 - T4F Performed By: #### L 500.4050, L506.0400, L501.9520 #### [facility] [address] [place], [address] Glucose [Mass/Vol] 98 mg/dL Normal 70-99 [facility] Comment on above: Order Comment: Order Date: 01/07/25 Order Info: 0786-1 - CMP Order Info: 3 - TSH Order Info: 7 - T4F Performed By: #### L 500.4050, L506.0400, L501.9520 #### [facility] [address] [place], [address] Potassium [Moles/Vol] 4.5 mmol/L Normal 3.3-5.1 [facility] Comment on above: Order Comment: Order Date: 01/07/25 Order Info: 0786-1 - CMP Order Info: 3 - TSH Order Info: 4-7 - T4F Performed By: #### L 500.4050, L506.0400, L501.9520 #### [facility] [address] [place], [address] Sodium [Moles/Vol] 140 mmol/L Normal 133-145 [facility] Comment on above: Order Comment: Order Date: 01/07/25 Order Info: 0786-1 - CMP Order Info: 3015-3 - TSH Order Info: 3024-7 - T4F Performed By: #### L 500.4050, L506.0400, L501.9520 #### [facility] [address] [place], [place], [address] T PROT 7.2 g/dL Normal 5.9-8.4 [facility] Comment on above: Order Comment: Order Date: 01/07/25 Order Info: 0786-1 - CMP Order Info: 3016-3 - TSH Order Info: 3024-7 - T4F Performed By: #### L 500.4050, L506.0400, L501.9520 #### [facility] [address] [place], [place], [address] Urea nitrogen [Mass/Vol] 15 mg/dL Normal 4-19 [facility] Comment on above: Order Comment: Order Date: 01/07/25 Order Info: 0786-1 - CMP Order Info: 3016-3 - TSH Order Info: 3024-7 - T4F Performed By: #### L 500.4050, L506.0400, L501.9520 #### [facility] [address] [place], [address] Creatinine Unsp time (U) [Ma ss/Vol]Ordered By: Bipin Adams on 01-07-2025 Creatinine (U) [Mass/Vol] 124.00 mg/dL 28.00-217.00 [facility] GFR/1.73 sq M.predicted walter g non-blacks MDRD (S/P/Bld) [Vol rate/Area]Ordered By: Bipin Adams on 01-07-2025 Estimated GFR (MDRD) Non-Af Amer 93 >60 [facility] Comment on above: mL/min/1.73m2 CKD-EP I Creatinine Equation (2020) Laboratory - Chemistry and C hemistry - challengeOrdered By: Bipin Adams on 01-07-2025 AST [Catalytic activity/Vol] 21 U/L <32 [facility] Microalb:Creat Ratio,Random URon 01-07-2025 Creatinine [Mass/Vol] 124.00 mg/dL Normal 28.00-217.00 [facility] Comment on above: Performed By: #### L 502.0250 #### [facility] [address] [place], [place], [address] MALB:CREAT UNABLE TO CALCULATE Normal [facility] Comment on above: Performed By: #### L 502.0250 #### [facility] [address] [place], [place], [address] MICROALBUMIN,UR < 12.0 Normal NO RANGE EST. [facility] Comment on above: Performed By: #### L 502.0250 #### [facility] [address] [place], [place], [address] Microalbumin/creat ratio urO rdered By: Bipin Adams on 01-07-2025 Urine Microalbumin/Creatinine Ratio UNABLE TO CALCULATE mg/g CRE [facility] Potassium (Unsp spec) [Mass/ Vol]Ordered By: Bipin Adams on 01-07-2025 Potassium [Moles/Vol] 4.5 mmol/L 3.3-5.1 [facility] Serum creatinine measurement (mass/volume)Ordered By: Bipin Adams on 01-07-2025 Creatinine [Mass/Vol] 0.68 mg/dL Low 0.70-1.20 [facility] Serum globulin measurementOr dered By: Bipin Adams on 01-07-2025 Globulin (S) [Mass/Vol] 3.1 g/dL 2.2-4.2 [facility] Serum glucose measurement (m ass/volume)Ordered By: Bipin Adams on 01-07-2025 Glucose [Mass/Vol] 98 mg/dL 70-99 [facility] Serum or plasma alanine shin otransferase (ALT) measurementOrdered By: Bipin Adams on 01-07-2025 ALT [Catalytic activity/Vol] 18 U/L <35 [facility] Serum or plasma albumin anatoly urement (mass/volume)Ordered By: Bipin Adams on 01-07-2025 Albumin [Mass/Vol] 4.2 g/dL 3.4-4.8 [facility] Serum or plasma albumin/glob ulin mass ratioOrdered By: Bipin Adams on 01-07-2025 Albumin/Globulin [Mass ratio] 1.4 {ratio} 0.9-2.4 [facility] Serum or plasma alkaline hai sphatase measurementOrdered By: Bipin Adams on 01-07-2025 ALP [Catalytic activity/Vol] 90 U/L 35-104 [facility] Serum or plasma calcium anatoly urement (mass/volume)Ordered By: Bipin Adams on 01-07-2025 Calcium [Mass/Vol] 9.5 mg/dL 7.6-11.0 [facility] Serum or plasma urea nitroge n measurement (mass/volume)Ordered By: Bipin Adams on 01-07-2025 Urea nitrogen [Mass/Vol] 15 mg/dL 4-19 [facility] Sodium levelOrdered By: Bipin Adams on 01-07-2025 Sodium [Moles/Vol] 140 mmol/L 133-145 [facility] T4 Free Directon 01-07-2025 T4 FREE DIRECT 1.80 ng/dL High 0.76-1.46 [facility] Comment on above: Order Comment: Order Date: 01/07/25 Order Info: 0786-1 - CMP Order Info: 3016-3 - TSH Order Info: 3024-7 - T4F Performed By: #### L 500.4050, L506.0400, L501.9520 #### [facility] [address] [place] [address]. [place], [address] T4 freeOrdered By: Bipin goodwin on 01-07-2025 Free T4 [Mass/Vol] 1.80 ng/dL High 0.76-1.46 [facility] TSH DL <= 0.005 mIU/L QnOrde red By: Bipin Adams on 01-07-2025 Thyroid Stimulating Hormone (TSH) 2.680 uIU/mL 0.300-4.200 [facility] Thyroid Stim Hormone (TSH)on 01-07-2025 TSH 2.680 uIU/mL Normal 0.300-4.200 [facility] Comment on above: Order Comment: Order Date: 01/07/25 Order Info: 0786-1 - CMP Order Info: 3016-3 - TSH Order Info: 3024-7 - T4F Performed By: #### L 500.4050, L506.0400, L501.9520 #### [facility] [address] [place], [place], [address] Total proteinOrdered By: Roberta Adams on 01-07-2025 Protein [Mass/Vol] 7.2 g/dL 5.9-8.4 [facility] SCRN MAMM (CAD)W/JULI BILATo n 08-03-2024 SCRN MAMM (CAD)W/JULI BILAT [facility] Imaging Services [address] [place], [place] [address] SCRN MAMM (CAD)W/JULI BILAT MR#: [id number] Acct: [id number] Name: SHOSHANA MORA Rep #: [id number] : 1950 F 74 From: Jaciel carvalho MD PCP: Dr. Bipin Adams MD Status: [facility] Study: SCRN MAMM (CAD)W/JULI BILAT Date of Exam: 07/08 05/30 Exam# [id number] Ordering Dr: Bipin Adams MD [id number] MAMMOGRAPHY - BILATERAL SCREENING REASON FOR EXAM: Female, 74 years old. Routine annual screening examination. PERTINENT HISTORY: Non-contributory. TECHNIQUE: Digital bilateral breast juli (3D mammographic acquisition) in the CC and MLO projections. 2-D mediolateral oblique (MLO) and craniocaudad (CC) views of both breasts were obtained. CAD: Full Field Digital Mammography with Computer Added Detection was performed. COMPARISON: Comparison is made with prior study August 01, 2023 and July 11, 2021. FINDINGS: Breast Composition: The breasts are heterogeneously dense, which may obscure small masses. There are no dominant masses or suspicious calcifications. No other significant abnormalities are identified. There has been no significant change since the prior study. BI/SCRN MAMM (CAD)W/JULI BILAT IMPRESSION: Stable bilateral screening mammogram. Yearly follow-up mammogram recommended. (A) ASSESSMENT CATEGORY: BIRADS Category 1: Negative. A letter regarding these results will be sent to the patient by the facility within 30 days. Approximately 10% of breast cancers are not detected by mammography. A normal mammogram should not delay biopsy of a clinically suspicious abnormality. [id number] Electronically Signed: Jaciel Isabel MD at 15:31 EDT Reading Location ID and State: [facility] / [place] , Service support , CC: Dr. Bipin Adams MD Manager Solar: Signed Normal [facility] Comprehensive Metabolic Prof laon 03-20-2024 Albumin [Mass/Vol] 3.6 g/dL Normal 3.2-5.0 [facility] Comment on above: Order Comment: ITH ORDERED CMP ORDERED BMP PLEASE MAKE SURE FAXED TO FOR SURGERY [phone] Performed By: #### L 775.4821 #### [facility] [address] [place], [address] Albumin/Globulin [Mass ratio] 1.1 {ratio} Normal 0.9-2.4 [facility] Comment on above: Order Comment: ITH ORDERED CMP ORDERED BMP PLEASE MAKE SURE FAXED TO FOR SURGERY [phone] Performed By: #### L 500.4050 #### [facility] [address] [place], [address] ALK P 75 U/L Normal 45-117 [facility] Comment on above: Order Comment: DR.SM BAIG ORDERED CMP ORDERED BMP PLEASE MAKE SURE FAXED TO FOR SURGERY [phone] Performed By: #### L 500.4050 #### [facility] [address] [place], [address] ALT [Catalytic activity/Vol] 25 U/L Normal 13-56 [facility] Comment on above: Order Comment: DR.SM BAIG ORDERED CMP ORDERED BMP PLEASE MAKE SURE FAXED TO FOR SURGERY [phone] Performed By: #### L 500.4050 #### [facility] [address] [place], [address] AST [Catalytic activity/Vol] 18 U/L Normal 15-37 [facility] Comment on above: Order Comment: DR.SM BAIG ORDERED CMP ORDERED BMP PLEASE MAKE SURE FAXED TO FOR SURGERY [phone] Performed By: #### L 500.4050 #### [facility] [address] [place], [address] Bilirubin [Mass/Vol] 1.90 mg/dL High 0.20-1.00 [facility] Comment on above: Order Comment: DR.SM BAIG ORDERED CMP ORDERED BMP PLEASE MAKE SURE FAXED TO FOR SURGERY [phone] Result Comment: For patients on eltrombopag therapy, use of Dimension [place] TBIL is not recommended. Performed By: #### L 500.4050 #### [facility] [address] [place], [address] BUN/CRE 28.4 RATIO High 10-20 [facility] Comment on above: Order Comment: ITH ORDERED CMP ORDERED BMP PLEASE MAKE SURE FAXED TO FOR SURGERY [phone] Performed By: #### L 500.4050 #### [facility] [address] [place], [address] CA,Total 9.1 mg/dL Normal 8.5-10.1 [facility] Comment on above: Order Comment: DR.SM BAIG ORDERED CMP ORDERED BMP PLEASE MAKE SURE FAXED TO FOR SURGERY [phone] Performed By: #### L 500.4050 #### [facility] [address] [place], [address] Chloride [Moles/Vol] 106 mmol/L Normal 98-107 [facility] Comment on above: Order Comment: ITH ORDERED CMP ORDERED BMP PLEASE MAKE SURE FAXED TO FOR SURGERY [phone] Performed By: #### L 500.4050 #### [facility] [address] [place], [address] CO2 [Moles/Vol] 25.0 mmol/L Normal 21.0-32.0 [facility] Comment on above: Order Comment: ITH ORDERED CMP ORDERED BMP PLEASE MAKE SURE FAXED TO FOR SURGERY [phone] Performed By: #### L 500.4050 #### [facility] [address] [place], [address] Creatinine [Mass/Vol] 0.63 mg/dL Normal 0.55-1.02 [facility] Comment on above: Order Comment: ITH ORDERED CMP ORDERED BMP PLEASE MAKE SURE FAXED TO FOR SURGERY [phone] Result Comment: The validity of the calculated GFR GFRAA in patients over 70 years has not been determined. Clinical correlation is essential. Performed By: #### L 500.4050 #### [facility] [address] [place], [address] EST GFR - AA 119 mL/min Normal >60 [facility] Comment on above: Order Comment: DR.SM ITH ORDERED CMP ORDERED BMP PLEASE MAKE SURE FAXED TO FOR SURGERY [phone] Result Comment: Afri can Finnish GFR Calc Performed By: #### L 500.4050 #### [facility] [address] [place], [address] GAP 9 Normal 5-15 [facility] Comment on above: Order Comment: DR.SM BAIG ORDERED CMP ORDERED BMP PLEASE MAKE SURE FAXED TO FOR SURGERY [phone] Performed By: #### L 500.4050 #### [facility] [address] [place], [address] GFR/1.73 sq M.predicted among non-blacks MDRD (S/P/Bld) [Vol rate/Area] 98 mL/min/{1.73_m2} Normal >60 [facility] Comment on above: Order Comment: DR.SM BAIG ORDERED CMP ORDERED BMP PLEASE MAKE SURE FAXED TO FOR SURGERY [phone] Result Comment: Non- GFR Calc Performed By: #### L 500.4050 #### [facility] [address] [place], [address] Globulin (S) [Mass/Vol] 3.4 g/dL Normal 2.2-4.2 [facility] Comment on above: Order Comment: DR.SM BAIG ORDERED CMP ORDERED BMP PLEASE MAKE SURE FAXED TO FOR SURGERY [phone] Performed By: #### L 500.4050 #### [facility] [address] [place], [address] Glucose [Mass/Vol] 102 mg/dL Normal 74-106 [facility] Comment on above: Order Comment: DR.SM BAIG ORDERED CMP ORDERED BMP PLEASE MAKE SURE FAXED TO FOR SURGERY [phone] Result Comment: Fast ing Glucose result from 100 to 125 mg/dL suggests IMPAIRED HOMEOSTASIS per A.D.A. criteria. Performed By: #### L 500.4050 #### [facility] [address] [place], [address] Potassium [Moles/Vol] 4.1 mmol/L Normal 3.5-5.1 [facility] Comment on above: Order Comment: ITH ORDERED CMP ORDERED BMP PLEASE MAKE SURE FAXED TO FOR SURGERY [phone] Performed By: #### L 500.4050 #### [facility] [address] [place], [address] Sodium [Moles/Vol] 140 mmol/L Normal 136-145 [facility] Comment on above: Order Comment: ITH ORDERED CMP ORDERED BMP PLEASE MAKE SURE FAXED TO FOR SURGERY [phone] Performed By: #### L 500.4050 #### [facility] [address] [place], [place], [address] T PROT 7.0 g/dL Normal 6.4-8.2 [facility] Comment on above: Order Comment: ITH ORDERED CMP ORDERED BMP PLEASE MAKE SURE FAXED TO FOR SURGERY [phone] Performed By: #### L [id number] #### [facility] [address] [place], [address] Urea nitrogen [Mass/Vol] 18 mg/dL Normal 7-18 [facility] Comment on above: Order Comment: ITH ORDERED CMP ORDERED BMP PLEASE MAKE SURE FAXED TO FOR SURGERY [phone] Performed By: #### L [id number] #### [facility] [address] [place], [address] Absolute lymphocyte countOrd ered By: Bipin Adams on 07-01-2023 Lymphocytes Auto (Unsp spec) [#/Vol] 0.60 10*3/uL 0.83-4.51 [facility] Basophil percentageOrdered B y: Bipin Adams on 07-01-2023 Basophils/100 WBC (Bld) 0.3 % 0-1 [facility] Bilirubin [Mass/Vol] 1.80 mg/dL 0.20-1.00 [facility] Comment on above: For patients on eltr ombopag therapy, use of Dimension [place] TBIL is not recommended. Chloride [Moles/Vol] 108 mmol/L 98-107 [facility] Eosinophils/100 WBC (Bld) 0.4 % 0-5 [facility] Glucose [Mass/Vol] 118 mg/dL 74-106 [facility] Comment on above: Fasting Glucose resu lt from 100 to 125 mg/dL suggests IMPAIRED HOMEOSTASIS per A.D.A. criteria. Neutrophils (Bld) [#/Vol] 8.7 10*3/uL 2.0-7.7 [facility] Neutrophils/100 WBC (Bld) 90.8 % 47-70 [facility] Potassium [Moles/Vol] 3.9 mmol/L 3.5-5.1 [facility] Protein [Mass/Vol] 7.4 g/dL 6.4-8.2 [facility] Sodium [Moles/Vol] 138 mmol/L 136-145 [facility] WBC (Bld) [#/Vol] 9.6 10*3/uL 4.4-11.0 [facility] Blood erythrocytes count (nu mber/volume)Ordered By: Bipin Adams on 07-01-2023 RBC (Bld) [#/Vol] 4.44 10*6/uL 4.2-5.4 [facility] Blood hemoglobin measurement (mass/volume)Ordered By: Bipin Adams on 07-01-2023 Hemoglobin (Bld) [Mass/Vol] 13.5 g/dL 12.0-15.0 [facility] Blood lymphocytes/100 leukoc ytesOrdered By: Bipin Adams on 07-01-2023 Lymphocytes/100 WBC (Bld) 6.3 % 19-41 [facility] Blood manual differential co mment interpretation (narrative result)Ordered By: Bipin Adams on 07-01-2023 Manual differential comment Barrett (Bld) [Interp] SEE COMMENT [facility] Comment on above: LYMPHOPENIA NOTED Blood monocytes/100 leukocyt esOrdered By: Bipin Adams on 07-01-2023 Monocytes/100 WBC (Bld) 1.8 % 0-10 [facility] Blood platelet adequacy dete ction by light microscopyOrdered By: Bipin Adams on 07-01-2023 Platelets LM Ql (Bld) ADEQUATE ADEQ [facility] Blood platelet mean volumeOr dered By: Bipin Adams on 07-01-2023 Platelet mean volume (Bld) [Entitic vol] 12.1 fL 6.2-12.0 [facility] Determination of erythrocyte mean corpuscular volume (MCV)Ordered By: Bipin Adams on 07-01-2023 MCV (RBC) [Entitic vol] 93.5 fL 81-99 [facility] Hematocrit Auto (Bld) [Volum e fraction]Ordered By: Bipin Adams on 07-01-2023 Hematocrit (Bld) [Volume fraction] 41.5 % 37-47 [facility] - Chemistry and C hemistry - challengeOrdered By: Bipin Adams on 07-01-2023 ALP [Catalytic activity/Vol] 79 U/L 45-117 [facility] ALT [Catalytic activity/Vol] 25 U/L 13-56 [facility] CO2 [Moles/Vol] 23.0 mmol/L 21.0-32.0 [facility] Free T4 [Mass/Vol] 1.62 ng/dL 0.76-1.46 [facility] Globulin (S) [Mass/Vol] 3.8 g/dL 2.2-4.2 [facility] Urea nitrogen/Creatinine [Mass ratio] 23.8 mg/mg 10-20 [facility] - Hematology and Cell countsOrdered By: Bipin Adams on 07-01-2023 Anisocytosis Ql (Bld) RARE [facility] Erythrocyte distribution width (RBC) [Entitic vol] 44.7 fL 35.1-43.9 [facility] Erythrocyte distribution width (RBC) [Ratio] 13.1 % 11.6-14.6 [facility] Immature granulocytes/100 WBC (Bld) 0.400 % 0.0-0.9 [facility] Comment on above: IG% - Immature Granu locytes (promyelocytes, myelocytes and metamyelocytes) > 1% indicates that a LEFT SHIFT is Present. MCH (RBC) [Entitic mass] 30.4 pg 27.0-32.0 [facility] Nucleated RBC/100 WBC (Bld) [Ratio] 0 % 0-5 [facility] MCHC Auto (RBC) [Mass/Vol]Or dered By: Bipin Adams on 07-01-2023 MCHC (RBC) [Mass/Vol] 32.5 g/dL 32-36 [facility] Macrocytes detectionOrdered By: Bipin Adams on 07-01-2023 Macrocytes Ql (Bld) RARE [facility] No Panel InformationOrdered By: Bipin Adams on 07-01-2023 Estimated GFR (MDRD) Amer 97 mL/min >60 [facility] Comment on above: GFR Calc Estimated GFR (MDRD) Non-Af Amer 80 mL/min >60 [facility] Comment on above: Non- GFR Calc Thyroid Stimulating Hormone (TSH) 1.12 uIU/mL 0.358-3.74 [facility] Platelets bldOrdered By: Roberta Adams on 07-01-2023 Platelets (Bld) [#/Vol] 245 10*3/uL 150-450 [facility] RBC morphologyOrdered By: Tyler Adams on 07-01-2023 RBC morphology finding Nom (Bld) N CHROM NORMAL NORM C&C [facility] Serum or plasma albumin anatoly urement (mass/volume)Ordered By: Bipin Adams on 07-01-2023 Albumin [Mass/Vol] 3.6 g/dL 3.2-5.0 [facility] Serum or plasma albumin/glob ulin mass ratioOrdered By: Bipin Adams on 07-01-2023 Albumin/Globulin [Mass ratio] 0.9 {ratio} 0.9-2.4 [facility] Serum or plasma calcium anatoly urement (mass/volume)Ordered By: Bipin Adams on 07-01-2023 Calcium [Mass/Vol] 8.8 mg/dL 8.5-10.1 [facility] Serum or plasma creatinine m easurement (mass/volume)Ordered By: Bipin Adams on 07-01-2023 Creatinine [Mass/Vol] 0.76 mg/dL 0.55-1.02 [facility] Comment on above: The validity of the calculated GFR & GFRAA in patients over 70 years has not been determined. Clinical correlation is essential. Serum or plasma urea nitroge n measurement (mass/volume)Ordered By: Bipin Adams on 07-01-2023 Urea nitrogen [Mass/Vol] 18 mg/dL 7-18 [facility] Thin prep Papanicolaou smear with manual screeningOrdered By: Bipin Adams on 07-01-2023 Thin prep Papanicolaou smear with manual screening 18 U/L 15-37 [facility] Thin prep Papanicolaou smear with manual screening 7 5-15 [facility] Absolute lymphocyte countOrd ered By: Dr. Adams on 12-05-2022 Lymphocytes Auto (Unsp spec) [#/Vol] 1.49 10*3/uL 0.83-4.51 [facility] Basophil percentageOrdered B y: Dr. Adams on 12-05-2022 Basophils/100 WBC (Bld) 0.8 % 0-1 [facility] Bilirubin [Mass/Vol] 1.80 mg/dL 0.20-1.00 [facility] Comment on above: For patients on eltr ombopag therapy, use of Dimension [place] TBIL is not recommended. Chloride [Moles/Vol] 102 mmol/L 98-107 [facility] Eosinophils/100 WBC (Bld) 2.0 % 0-5 [facility] Glucose [Mass/Vol] 92 mg/dL 74-106 [facility] Neutrophils (Bld) [#/Vol] 3.9 10*3/uL 2.0-7.7 [facility] Neutrophils/100 WBC (Bld) 63.0 % 47-70 [facility] Potassium [Moles/Vol] 3.7 mmol/L 3.5-5.1 [facility] Protein [Mass/Vol] 6.9 g/dL 6.4-8.2 [facility] Sodium [Moles/Vol] 139 mmol/L 136-145 [facility] WBC (Bld) [#/Vol] 6.1 10*3/uL 4.4-11.0 [facility] Blood erythrocytes count (nu mber/volume)Ordered By: Dr. Adams on 12-05-2022 RBC (Bld) [#/Vol] 4.43 10*6/uL 4.2-5.4 [facility] Blood hemoglobin measurement (mass/volume)Ordered By: Dr. Adams on 12-05-2022 Hemoglobin (Bld) [Mass/Vol] 13.6 g/dL 12.0-15.0 [facility] Blood lymphocytes/100 leukoc ytesOrdered By: Dr. Adams on 12-05-2022 Lymphocytes/100 WBC (Bld) 24.4 % 19-41 [facility] Blood monocytes/100 leukocyt esOrdered By: Dr. Adams on 12-05-2022 Monocytes/100 WBC (Bld) 9.5 % 0-10 [facility] Blood platelet mean volumeOr dered By: Dr. Adams on 12-05-2022 Platelet mean volume (Bld) [Entitic vol] 11.8 fL 6.2-12.0 [facility] Determination of erythrocyte mean corpuscular volume (MCV)Ordered By: Dr. Adams on 12-05-2022 MCV (RBC) [Entitic vol] 93.5 fL 81-99 [facility] Hematocrit Auto (Bld) [Volum e fraction]Ordered By: Dr. Adams on 12-05-2022 Hematocrit (Bld) [Volume fraction] 41.4 % 37-47 [facility] - Chemistry and C hemistry - challengeOrdered By: Dr. Adams on 12-05-2022 ALP [Catalytic activity/Vol] 86 U/L 45-117 [facility] ALT [Catalytic activity/Vol] 21 U/L 13-56 [facility] CO2 [Moles/Vol] 30.0 mmol/L 21.0-32.0 [facility] Globulin (S) [Mass/Vol] 3.5 g/dL 2.2-4.2 [facility] Urea nitrogen/Creatinine [Mass ratio] 21.3 mg/mg 10-20 [facility] - Hematology and Cell countsOrdered By: Dr. Adams on 12-05-2022 Erythrocyte distribution width (RBC) [Entitic vol] 44.3 fL 35.1-43.9 [facility] Erythrocyte distribution width (RBC) [Ratio] 12.9 % 11.6-14.6 [facility] Immature granulocytes/100 WBC (Bld) 0.300 % 0.0-0.9 [facility] Comment on above: IG% - Immature Granu locytes (promyelocytes, myelocytes and metamyelocytes) > 1% indicates that a LEFT SHIFT is Present. MCH (RBC) [Entitic mass] 30.7 pg 27.0-32.0 [facility] Nucleated RBC/100 WBC (Bld) [Ratio] 0 % 0-5 [facility] MCHC Auto (RBC) [Mass/Vol]Or dered By: Dr. Adams on 12-05-2022 MCHC (RBC) [Mass/Vol] 32.9 g/dL 32-36 [facility] No Panel InformationOrdered By: Dr. Adams on 12-05-2022 Estimated GFR (MDRD) Amer 98 mL/min >60 [facility] Comment on above: GFR Calc Estimated GFR (MDRD) Non-Af Amer 81 mL/min >60 [facility] Comment on above: Non- GFR Calc Parathyroid Hormone (Intact) 51.9 pg/mL 18.4-80.1 [facility] Urine Microalbumin/Creatinine Ratio TNP [facility] Comment on above: Test not performed Vitamin D 25-Hydroxy 35.6 ng/mL [facility] Comment on above: Vitamin D 25(OH) Sta tus Range Deficiency <20 ng/mL (50nmol/L) Insufficiency 20 - 30 ng/mL (50 - 75 nmol/L) Sufficiency 30 - 100 ng/mL (75 - 250 nmol/L) Toxicity >100 ng/mL (>250 nmol/L) Platelets bldOrdered By: Dr. Adams on 12-05-2022 Platelets (Bld) [#/Vol] 274 10*3/uL 150-450 [facility] Serum or plasma albumin anatoly urement (mass/volume)Ordered By: Dr. Adams on 12-05-2022 Albumin [Mass/Vol] 3.4 g/dL 3.2-5.0 [facility] Serum or plasma albumin/glob ulin mass ratioOrdered By: Dr. Adams on 12-05-2022 Albumin/Globulin [Mass ratio] 1.0 {ratio} 0.9-2.4 [facility] Serum or plasma calcium anatoly urement (mass/volume)Ordered By: Dr. Adams on 12-05-2022 Calcium [Mass/Vol] 9.1 mg/dL 8.5-10.1 [facility] Serum or plasma creatinine m easurement (mass/volume)Ordered By: Dr. Adams on 12-05-2022 Creatinine [Mass/Vol] 0.75 mg/dL 0.55-1.02 [facility] Comment on above: The validity of the calculated GFR & GFRAA in patients over 70 years has not been determined. Clinical correlation is essential. Serum or plasma urea nitroge n measurement (mass/volume)Ordered By: Dr. Adams on 12-05-2022 Urea nitrogen [Mass/Vol] 16 mg/dL 7-18 [facility] Thin prep Papanicolaou smear with manual screeningOrdered By: Dr. Adams on 12-05-2022 Thin prep Papanicolaou smear with manual screening 15 U/L 15-37 [facility] Thin prep Papanicolaou smear with manual screening 7 5-15 [facility] Thin prep Papanicolaou smear with manual screening < 5.0 mg/L NO RANGE EST. [facility] Urine creatinine measurement (mass/volume)Ordered By: Dr. Adams on 12-05-2022 Creatinine (U) [Mass/Vol] 48.90 mg/dL NO RANGE EST. [facility] Absolute lymphocyte counton 07-06-2022 Lymphocytes Auto (Unsp spec) [#/Vol] 1.71 10*3/uL 0.83-4.51 [facility] Work Phone: Basophil percentageon 2021 Basophils/100 WBC (Bld) 0.7 % 0-1 [facility] Work Phone: Bilirubin [Mass/Vol] 1.60 mg/dL 0.20-1.00 [facility] Work Phone: Comment on above: For patients on eltr ombopag therapy, use of Dimension [place] TBIL is not recommended. Chloride [Moles/Vol] 106 mmol/L 98-107 [facility] Work Phone: Eosinophils/100 WBC (Bld) 1.3 % 0-5 [facility] Work Phone: Glucose [Mass/Vol] 102 mg/dL 74-106 [facility] Work Phone: Comment on above: Fasting Glucose resu lt from 100 to 125 mg/dL suggests IMPAIRED HOMEOSTASIS per A.D.A. criteria. Neutrophils (Bld) [#/Vol] 5.2 10*3/uL 2.0-7.7 [facility] Work Phone: Neutrophils/100 WBC (Bld) 68.1 % 47-70 [facility] Work Phone: Potassium [Moles/Vol] 3.9 mmol/L 3.5-5.1 [facility] Work Phone: Protein [Mass/Vol] 7.5 g/dL 6.4-8.2 [facility] Work Phone: Sodium [Moles/Vol] 139 mmol/L 136-145 [facility] Work Phone: WBC (Bld) [#/Vol] 7.6 10*3/uL 4.4-11.0 [facility] Work Phone: Blood erythrocytes count (nu mber/volume)on 07-06-2022 RBC (Bld) [#/Vol] 4.70 10*6/uL 4.2-5.4 [facility] Work Phone: Blood hemoglobin measurement (mass/volume)on 07-06-2022 Hemoglobin (Bld) [Mass/Vol] 14.3 g/dL 12.0-15.0 [facility] Work Phone: Blood lymphocytes/100 leukoc yteson 07-06-2022 Lymphocytes/100 WBC (Bld) 22.4 % 19-41 [facility] Work Phone: Blood monocytes/100 leukocyt eson 07-06-2022 Monocytes/100 WBC (Bld) 7.2 % 0-10 [facility] Work Phone: Blood platelet mean volumeon 07-06-2022 Platelet mean volume (Bld) [Entitic vol] 11.6 fL 6.2-12.0 [facility] Work Phone: Determination of erythrocyte mean corpuscular volume (MCV)on 07-06-2022 MCV (RBC) [Entitic vol] 90.6 fL 81-99 [facility] Work Phone: Hematocrit Auto (Bld) [Volum e fraction]on 07-06-2022 Hematocrit (Bld) [Volume fraction] 42.6 % 37-47 [facility] Work Phone: Laboratory - Chemistry and C hemistry - challengeon 07-06-2022 ALP [Catalytic activity/Vol] 91 U/L 45-117 [facility] Work Phone: ALT [Catalytic activity/Vol] 43 U/L 13-56 [facility] Work Phone: CO2 [Moles/Vol] 23.0 mmol/L 21.0-32.0 [facility] Work Phone: Globulin (S) [Mass/Vol] 3.8 g/dL 2.2-4.2 [facility] Work Phone: Urea nitrogen/Creatinine [Mass ratio] 29.0 mg/mg 10-20 [facility] Work Phone: Laboratory - Hematology and Cell countson 07-06-2022 Erythrocyte distribution width (RBC) [Entitic vol] 42.8 fL 35.1-43.9 [facility] Work Phone: Erythrocyte distribution width (RBC) [Ratio] 13.0 % 11.6-14.6 [facility] Work Phone: Immature granulocytes/100 WBC (Bld) 0.300 % 0.0-0.9 [facility] Work Phone: Comment on above: IG% - Immature Granu locytes (promyelocytes, myelocytes and metamyelocytes) > 1% indicates that a LEFT SHIFT is Present. MCH (RBC) [Entitic mass] 30.4 pg 27.0-32.0 [facility] Work Phone: Nucleated RBC/100 WBC (Bld) [Ratio] 0 % 0-5 [facility] Work Phone: MCHC Auto (RBC) [Mass/Vol]on 07-06-2022 MCHC (RBC) [Mass/Vol] 33.6 g/dL 32-36 [facility] Work Phone: No Panel Informationon 07-06 Estimated GFR (MDRD) Amer 122 mL/min >60 [facility] Work Phone: Comment on above: GFR Calc Estimated GFR (MDRD) Non-Af Amer 101 mL/min >60 [facility] Work Phone: Comment on above: Non- GFR Calc Parathyroid Hormone (Intact) 60.5 pg/mL 18.4-80.1 [facility] Work Phone: Thyroid Stimulating Hormone (TSH) 1.31 uIU/mL 0.358-3.74 [facility] Work Phone: Vitamin D 25-Hydroxy 37.5 ng/mL [facility] Work Phone: Comment on above: Vitamin D 25(OH) Sta tus Range Deficiency <20 ng/mL (50nmol/L) Insufficiency 20 - 30 ng/mL (50 - 75 nmol/L) Sufficiency 30 - 100 ng/mL (75 - 250 nmol/L) Toxicity >100 ng/mL (>250 nmol/L) Platelets bldon 07-06-2022 Platelets (Bld) [#/Vol] 264 10*3/uL 150-450 [facility] Work Phone: Serum Varicella zoster virus IgG antibody assay by immunoassay (units/volume)on 07-06-2022 VZV IgG IA Qn (S) 1239 index Immune >165 [facility] Work Phone: Comment on above: Negative <135 Equivo reynold 135 - 165 Positive >165A positive result generally indicates exposure to thepathogen or administration of specific immunoglobulins,but it is not indication of active infection or stageof disease.Performed at: [facility] [id number] Director: Kush Mesa PhD, Phone: [phone] Serum or plasma albumin anatoly urement (mass/volume)on 07-06-2022 Albumin [Mass/Vol] 3.7 g/dL 3.2-5.0 [facility] Work Phone: Serum or plasma albumin/glob ulin mass ratioon 07-06-2022 Albumin/Globulin [Mass ratio] 1.0 {ratio} 0.9-2.4 [facility] Work Phone: Serum or plasma calcium anatoly urement (mass/volume)on 07-06-2022 Calcium [Mass/Vol] 9.5 mg/dL 8.5-10.1 [facility] Work Phone: Serum or plasma creatinine m easurement (mass/volume)on 07-06-2022 Creatinine [Mass/Vol] 0.62 mg/dL 0.55-1.02 [facility] Work Phone: Comment on above: The validity of the calculated GFR & GFRAA in patients over 70 years has not been determined. Clinical correlation is essential. Serum or plasma urea nitroge n measurement (mass/volume)on 07-06-2022 Urea nitrogen [Mass/Vol] 18 mg/dL 7-18 [facility] Work Phone: Thin prep Papanicolaou smear with manual screeningon 07-06-2022 Thin prep Papanicolaou smear with manual screening 24 U/L 15-37 [facility] Work Phone: Thin prep Papanicolaou smear with manual screening 10 5-15 [facility] Work Phone: Culture, urineon 01-26-2022 Bacteria identified Cx Nom (U) Culture exhibits no growth. [facility] Work Phone: Basophil percentageon 2021 Bilirubin [Mass/Vol] 1.40 mg/dL 0.20-1.00 [facility] Work Phone: Comment on above: For patients on eltr ombopag therapy, use of Dimension [place] TBIL is not recommended. Chloride [Moles/Vol] 105 mmol/L 98-107 [facility] Work Phone: Cholesterol [Mass/Vol] 181 mg/dL <200 [facility] Work Phone: Comment on above: <200 mg/dL Desirable 200-240 mg/dL Borderline >240 mg/dL High Risk Glucose [Mass/Vol] 97 mg/dL 74-106 [facility] Work Phone: Potassium [Moles/Vol] 4.9 mmol/L 3.5-5.1 [facility] Work Phone: Protein [Mass/Vol] 7.1 g/dL 6.4-8.2 [facility] Work Phone: Sodium [Moles/Vol] 140 mmol/L 136-145 [facility] Work Phone: Triglyceride [Mass/Vol] 65 mg/dL [facility] Work Phone: Comment on above: The drugs N-Acetylcy steine and Metamizole may falsely depress this assay.Serum Triglycerides Reference Interval Normal <150 mg/dL Borderline high 150 - 199 mg/dL High 200 - 499 mg/dL Very High > or = 500 mg/dL Laboratory - Chemistry and C hemistry - challengeon 12-20-2021 ALP [Catalytic activity/Vol] 97 U/L 45-117 [facility] Work Phone: ALT [Catalytic activity/Vol] 30 U/L 13-56 [facility] Work Phone: CO2 [Moles/Vol] 31.0 mmol/L 21.0-32.0 [facility] Work Phone: Globulin (S) [Mass/Vol] 3.3 g/dL 2.2-4.2 [facility] Work Phone: Urea nitrogen/Creatinine [Mass ratio] 32.7 mg/mg 10-20 [facility] Work Phone: No Panel Informationon 12-20 Estimated GFR (MDRD) Amer 132 mL/min >60 [facility] Work Phone: Comment on above: GFR Calc Estimated GFR (MDRD) Non-Af Amer 109 mL/min >60 [facility] Work Phone: Comment on above: Non- GFR Calc Thyroid Stimulating Hormone (TSH) 2.62 uIU/mL 0.358-3.74 [facility] Work Phone: Urine Microalbumin/Creatinine Ratio TNP [facility] Work Phone: Comment on above: Test not performed Serum or plasma albumin anatoly urement (mass/volume)on 12-20-2021 Albumin [Mass/Vol] 3.8 g/dL 3.2-5.0 [facility] Work Phone: Serum or plasma albumin/glob ulin mass ratioon 12-20-2021 Albumin/Globulin [Mass ratio] 1.2 {ratio} 0.9-2.4 [facility] Work Phone: Serum or plasma calcium anatoly urement (mass/volume)on 12-20-2021 Calcium [Mass/Vol] 9.0 mg/dL 8.5-10.1 [facility] Work Phone: Serum or plasma cholesterol in HDL measurement (mass/volume)on 12-20-2021 Cholesterol in HDL [Mass/Vol] 48 mg/dL [facility] Work Phone: Comment on above: The drugs N-Acetylcy steine and Metamizole may falsely depress this assay. Reference Range HDL <40 mg/dL Low HDL Cholesterol HDL >or= 60 mg/dL High HDL Cholesterol Serum or plasma cholesterol in VLDL measurement (mass/volume)on 12-20-2021 Cholesterol in VLDL [Mass/Vol] 13 mg/dL 5-40 [facility] Work Phone: Serum or plasma creatinine m easurement (mass/volume)on 12-20-2021 Creatinine [Mass/Vol] 0.58 mg/dL 0.55-1.02 [facility] Work Phone: Comment on above: The validity of the calculated GFR & GFRAA in patients over 70 years has not been determined. Clinical correlation is essential. Serum or plasma low density lipoprotein (LDL) cholesterol measurement (mass/volume)on 12-20-2021 Cholesterol in LDL [Mass/Vol] 120 mg/dL 0-130 [facility] Work Phone: Serum or plasma urea nitroge n measurement (mass/volume)on 12-20-2021 Urea nitrogen [Mass/Vol] 19 mg/dL 7-18 [facility] Work Phone: Thin prep Papanicolaou smear with manual screeningon 12-20-2021 Thin prep Papanicolaou smear with manual screening 21 U/L 15-37 [facility] Work Phone: Thin prep Papanicolaou smear with manual screening 4 5-15 [facility] Work Phone: Thin prep Papanicolaou smear with manual screening < 5.0 mg/L NO RANGE EST. [facility] Work Phone: Urine creatinine measurement (mass/volume)on 12-20-2021 Creatinine (U) [Mass/Vol] 45.90 mg/dL NO RANGE EST. [facility] Work Phone: Whole blood hemoglobin A1c/t otal hemoglobin ratio (mass fraction)on 12-20-2021 HbA1c (Bld) [Mass fraction] 5.6 % 3.8-5.6 [facility] Work Phone: Comment on above: Normal < 5.7 % Predi abetic 5.7 - 6.4 % Diabetic >or= 6.5 % Please note range changes. MA MAMMOGRAM SCREENING BILAT ERAL W/TOMOon 07-28-2018 MA MAMMOGRAM SCREENING BILATERAL W/JULI ORIGINALFROM:KATT [address] [address]Vkdcn: [phone] PROCEDURE FOR:SHOSHANA Sharma [id number] [place], [place] [address]Oiui: [phone]#: [id number]#: [id number]#: [id number]: 2Age: 68 TO:SILVIA VAZQUEZ [address] [place] [address] #[id number] BILATERAL DIGITAL SCREENING MAMMOGRAM 3D/2D WITH CAD WITH MEDIOLATERAL OBLIQUE CRANIOCAUDAL: 07/28/2018 Comparison is made to exams dated: 07/24/2017 mammogram and 07/23/2016 mammogram - [facility]. There are scattered fibroglandular elements in both breasts. Current study was also evaluated with a Computer Aided Detection (CAD) system. No significant masses, calcifications, or other findings are seen in either breast. There has been no significant interval change. IMPRESSION: NEGATIVEThere is no mammographic evidence of malignancy. A 1 year screening mammogram is recommended.( 019) Mariusz Griffin M.D., F.A.C.R. tbp/penrad: 8 16:35:08 Grain Miller Helper(s): RT DMITRY (Fabio)(M), [facility]: Normal BI-RADS 1&2 Mammogram BI-RADS: 1 Negative Normal [facility] ([place]) .GFRon 07-10-2018 GFR 95 ml/min/1.73sqm Normal [facility] Comment on above: Result Comment: GFR Population [...] square meters Performed By: #### H GMP ####[place] [id number]#### CMP, LIPID, GFR, TSH ####[address] [address] GFR Non- 79 ml/min/1.73sqm Normal [facility] ([place]) Comment on above: Result Comment: GFR Population [...] square meters Performed By: #### H GMP ####[place] [address]#### CMP, LIPID, GFR, TSH ####[place] [address] CMPon 07-10-2018 Albumin mass conc 3.7 G/dL Normal 3.4-4.8 [facility] ([place]) Comment on above: Performed By: #### H GMP ####[place] [address]#### CMP, LIPID, GFR, TSH ####[place] [address] Albumin/Globulin mass ratio 1.2 {ratio} Normal 1.1-2.5 [facility] ([place]) Comment on above: Performed By: #### H GMP ####[place] [address]#### CMP, LIPID, GFR, TSH ####[address] [address] ALP enzyme act/vol 91 U/L Normal 40-135 [facility] ([place]) Comment on above: Performed By: #### H GMP ####[place] [address]#### CMP, LIPID, GFR, TSH ####[address] [address] ALT enzyme act/vol 31 U/L Normal 10-35 [facility] ([place] Comment on above: Performed By: #### H GMP ####[place] [address]#### CMP, LIPID, GFR, TSH ####[address] [address] AST enzyme act/vol 20 U/L Normal 10-40 [facility] ([place] Comment on above: Performed By: #### H GMP ####[place] [address]#### CMP, LIPID, GFR, TSH ####[place] [address] Bili Total 1.6 mg/dL High 0.2-1.0 [facility] ([place]) Comment on above: Performed By: #### H GMP ####[place] [address]#### CMP, LIPID, GFR, TSH ####[address] [address] Calcium mass conc 9.4 mg/dL Normal 8.4-10.2 [facility] ([place] Comment on above: Performed By: #### H GMP ####[place] [address]#### CMP, LIPID, GFR, TSH ####[address] [address] Chloride molar conc 105 mmol/L Normal 98-107 [facility] ([place]) Comment on above: Performed By: #### H GMP ####[place] [address]#### CMP, LIPID, GFR, TSH ####[address] [address] CO2 molar conc 30 mmol/L Normal 23-31 [facility] ([place]) Comment on above: Performed By: #### H GMP ####[place] [address]#### CMP, LIPID, GFR, TSH ####[place] [address] Creatinine mass conc 0.74 mg/dL Normal 0.55-1.02 [facility] ([place]) Comment on above: Performed By: #### H GMP ####[place] [address]#### CMP, LIPID, GFR, TSH ####[place] [address] Electrolyte Balance 6.0 mEq/L Normal [facility] ([place]) Comment on above: Performed By: #### H GMP ####[place] [address]#### CMP, LIPID, GFR, TSH ####[place] [address] Globulin Calculated mass conc (S) 3.0 G/dL Normal [facility] ([place] Comment on above: Performed By: #### H GMP ####[place] [address]#### CMP, LIPID, GFR, TSH ####[place] [address] Glucose mass conc 96 mg/dL Normal 80-115 [facility] ([place] Comment on above: Performed By: #### H GMP ####[place] [address]#### CMP, LIPID, GFR, TSH ####[facility] [place] [address] Potassium molar conc 4.6 mmol/L Normal 3.5-5.1 [facility] ([place]) Comment on above: Performed By: #### H GMP ####[place] [address]#### CMP, LIPID, GFR, TSH ####[place] [id number] Protein mass conc 6.7 G/dL Normal 6.4-8.2 [facility] ([place] Comment on above: Performed By: #### H GMP ####[place] [address]#### CMP, LIPID, GFR, TSH ####[address] [address] Sodium molar conc 141 mmol/L Normal 136-145 [facility] ([place] Comment on above: Performed By: #### H GMP ####[place] [address]#### CMP, LIPID, GFR, TSH ####[place] [address] Urea nitrogen mass conc 20 mg/dL High 7-18 [facility] ([place]) Comment on above: Performed By: #### H GMP ####[place] [address]#### CMP, LIPID, GFR, TSH ####[place] [address] Urea nitrogen/Creatinine mass ratio 27 ratio Normal 7-27 [facility] ([place] Comment on above: Performed By: #### H GMP ####[place] [address]#### CMP, LIPID, GFR, TSH ####[place] [address] HGMPon 07-10-2018 Erythrocyte distribution width Auto Ratio (RBC) 13.6 % Normal 11.5-14.5 [facility] ([place] Comment on above: Performed By: #### H GMP ####[place] [address]#### CMP, LIPID, GFR, TSH ####[address] [address] Hematocrit Auto Volume Fraction (Bld) 40.7 % Normal 37.0-47.0 [facility] ([place] Comment on above: Performed By: #### H GMP ####[place] [address]#### CMP, LIPID, GFR, TSH ####[place] [address] Hemoglobin mass conc (Bld) 13.6 G/dL Normal 12.0-16.0 [facility] ([place] Comment on above: Performed By: #### H GMP ####[place] [address]#### CMP, LIPID, GFR, TSH ####[place] [address] MCH Auto Entitic mass (RBC) 30.0 pg Normal 27.0-31.2 [facility] ([place]) Comment on above: Performed By: #### H GMP ####[place] [address]#### CMP, LIPID, GFR, TSH ####[place] [address] MCHC Auto mass conc (RBC) 33.5 G/dL Normal 33.0-37.0 [facility] ([place]) Comment on above: Performed By: #### H GMP ####[place] [address]#### CMP, LIPID, GFR, TSH ####[place] [address] MCV Auto Entitic volume (RBC) 89.5 fL Normal 80.0-94.0 [facility] ([place]) Comment on above: Performed By: #### H GMP ####[place] [address]#### CMP, LIPID, GFR, TSH ####[place] [address] Platelet mean volume Auto Entitic volume (Bld) 10.1 fL Normal 7.4-10.4 [facility] ([place]) Comment on above: Performed By: #### H GMP ####[place] [address]#### CMP, LIPID, GFR, TSH ####[place] [address] Platelets Auto #/vol (Bld) 260 10 3/mcL Normal 130-400 [facility] ([place] Comment on above: Performed By: #### H GMP ####[place] [id number]#### CMP, LIPID, GFR, TSH ####[address] [address] RBC Auto #/vol (Bld) 4.55 10 6/mcL Normal 4.20-5.40 A [facility] ([place]) Comment on above: Performed By: #### H GMP ####[place] [address]#### CMP, LIPID, GFR, TSH ####[place] [address] WBC Auto #/vol (Bld) 6.90 10 3/mcL Normal 4.60-10.80 A [facility] ([place] Comment on above: Performed By: #### H GMP ####[place] [address]#### CMP, LIPID, GFR, TSH ####[place] [address] LIPIDon 07-10-2018 Cholesterol in HDL mass conc 42 mg/dL Normal 40-60 [facility] ([place] Comment on above: Performed By: #### H GMP ####[place] [id number]#### CMP, LIPID, GFR, TSH ####[place] [address] Cholesterol in LDL mass conc 131 mg/dL High 0-130 [facility] ([place] Comment on above: Performed By: #### H GMP ####[place] [id number]#### CMP, LIPID, GFR, TSH ####[place] [address] Cholesterol mass conc 183 mg/dL Normal 0-200 [facility] ([place]) Comment on above: Result Comment: Chol esterol Reference Interval:Less than 200 [id number] Borderline high knsx306 and above High risk Performed By: #### H GMP ####[facility] [place], [place] [address]#### CMP, LIPID, GFR, TSH ####[place] [address] [place] [address] Triglyceride mass conc 51 mg/dL Normal 0-150 [facility] ([place]) Comment on above: Result Comment: Trig lyceride Reference Interval:Less than 150 [id number] Borderline high [id number] High heku007 or higher Very high risk Performed By: #### H GMP ####[facility] [place] [id number]#### CMP, LIPID, GFR, TSH ####[place] [address] [place] [address] TSHon 07-10-2018 Thyrotropin Qn 1.94 mcIU/mL Normal 0.36-3.74 [facility] ([place]) Comment on above: Performed By: #### H GMP ####[facility] [place] [id number]#### CMP, LIPID, GFR, TSH ####[address] [address] Vital Signs Date Time Vital Sign Value Performing Clinician Faci cecily 08-01-2023 15:31-0400 Body height 161.29 cm [facility] Encounters Encounter Date Encounter Type Care Provider Facility Start: 01-07-2025 End: 01-07-[address] Bipin Adams MD Work Phone: [facility] Work Phone: Start: 01-07-2025 End: 01-07-[address] Bipin Adams MD -Laboratory, [facility] Start: 01-07-2025 End: 01-07-2025 ambulatory Bipin Adams Facility:[facility] Start: 08-03-2024 End: 08-03-2024 ambulatory Bipin Adams Facility:[facility] Start: 03-20-2024 End: 03-20-2024 ambulatory Bipin Adams Facility:[facility] Start: 08-01-2023 End: 08-01-2023 ambulatory [facility] Work Phone: Start: 08-01-2023 End: 08-01-2023 Patient encounter procedure [facility]-Outpatient Bone Densitometry Work Phone: Start: 07-01-2023 End: 07-01-[address] Bipin Adams Work Phone: [facility] Work Phone: Start: 07-01-2023 End: 07-01-[address] Bipin Adams Work Phone: [facility] Work Phone: Start: 03-27-2023 Non-patient / Non-visit Dr. Tyler Adams Work Phone: [facility] Start: 03-27-2023 End: 03-27-[address] Bipin Adams Work Phone: [facility] Work Phone: Start: 03-27-2023 End: 03-27-[address] Bipin Adams Work Phone: [facility]-Cardiovascular Services Start: 12-05-2022 End: 12-05-[address] Bipin Adams Work Phone: [facility] Start: 07-06-2022 End: 07-06-2022 ambulatory [facility] Work Phone: Start: 07-06-2022 End: 07-06-2022 [facility] Start: 01-26-2022 End: 01-26-[facility]22 [facility] Start: 12-20-2021 End: 12-20-2021 [facility] Start: 07-28-2018 End: 07-29-2018 Patient encounter SILVIA VAZQUEZ Facility:[facility] Start: 07-10-2018 End: 07-11-2018 Patient encounter SILVIA Haynes JR. VAZQUEZ Facility:[facility] Procedures Date Procedure Procedure Detail Performing Clinician Start: 08-01-2023 Dual energy X-ray absorptiometry Start: 08-01-2023 Screening mammography Start: 01-26-2022 Urine culture Payers Date Payer Category Payer Private Health Insurance [facility] [id number] 2024 Self-pay [id number] 2020 Medicare [id number] 2018 Medicare [id number] 2018 Unknown [id number] 2015 Unknown [id number] 1950 Unknown [id number] 2.16.8 [id number] 1950 Unknown 1993 [id number] [id number] Unknown [id number] Unknown [id number] 2.16.8 [id number] Unknown [id number] 2.16.8 [id number] Unknown [id number] 2.16.8 [id number] Social History Date Type Detail Facility [facility]: [facility] Start: 1950 Sex Assigned At Female [facility] Start: 09-21-2019 [facility] Start: 01-12-2025 Sex Female (finding) [facility] Evaluation note Note Date & Type Note Facility Evaluation note No assessment information availa ble [facility] Work Phone: Reason for referral (narrative) Note Date & Type Note Facility Reason for referral (narrative) No reason for referral information available [facility] Work Phone: Summary Purpose Family History No Family History Records FoundNo Family History Records Found Advance Directives No Advanced Directives Records Found Advance Directive Response Recorded Date/ Time Advance Directives No March 22 10:15am Living Will No September 21, 2 019 5:34pm Power of Angiography Technologist No September 21, 2019 5:34pm Advance Directive Response Recorded Date/ Time Advance Directives No March 22 10:15am Chief Complaint and Reason for Visit Chief Complaint RIGHT LOWER LEG PAIN Chief Complaint SCREENING Additional Source Comments INFORMATION SOURCE (unrecogn ized section and content) DATE CREATED AUTHOR 08/27/2018 [facility] ([place]) DATE CREATED AUTHOR AUTHOR'S ORGANIZ ATION 01/14/2025 [facility] Goals (unrecognized section and content) Goals may be documented in a n alternate sectionGoals may be documented in an alternate sectionGoals may be documented in an alternate sectionGoals may be documented in an alternate sectionGoals may be documented in an alternate sectionGoals may be documented in an alternate sectionGoals may be documented in an alternate section Care Teams (unrecognized sec tion and content) Team Status: Active Member Role Status Dates Dr. Bipin Adams MD Family Provider Active Dr. Bipin Adams MD Primary Care Provider Active Team Status: Active Member Role Status Dates Dr. Bipin Adams MD Primary Care Provider Active Dr. Alverto Rey MD Attending Provider Active Team Status: Inactive Member Role Status Dates Dr. Bipin Adams MD Primary Care Provide r, Attending Provider, Referring Provider Active Team Status: Inactive Member Role Status Dates Dr. Bipin Adams MD Primary Care Provider Active Concepcion Brasher MD Attending Provider, Referring Provide r Active Team Status: Active Member Role Status Dates Dr. Bipin Adams MD Primary Care Provider Active Dr. Alverto Rey MD Attending Provider Active Concepcion Brasher MD Referring Provider Active Team Status: Inactive Member Role Status Dates Dr. Bipin Adams MD Primary Care Provider Active SUZY Shepard Attending Provider, Referr ing Provider Active Team Status: Inactive Member Role Status Dates Dr. Bipin Adams MD Primary Care Provider Active Start: January 07, 2025 End: January 07, 2025 Dr. Bipin Adams MD Attending Provider Active St art: January 07, 2025 End: January 07, 2025 Dr. Bipin Adams MD Referring Provider Active art: January 07, 2025 End: January 07, 2025 FOR RECORDS PERTAINING TO PATIENTS WHO ARE [...] BE BASED ON THE PRIMARY CLINICAL RECORDS. [facility] [employer] [facility]. provides no warranty or guarantee of the accuracy or completeness of information in this document.
[2025-04-27 04:13] LABS: Hematocrit 42.2 % (37-47); Hemoglobin 13.8 g/dL (12.0-15.0); Immature Granulocytes Count 0.110 X10^3/uL (0.0-0.0); Mean Corp Hgb Conc 32.7 g/dL (32-36); Mean Corpuscular Volume 90.6 fL (81-99); Mean Platelet Vol. 11.5 fl (6.2-12.0); NRBC Flagged by Analyzer 0 % (0-5); Platelet Count 244 K/mm3 (150-450); RBC Distribution Width CV 13.2 % (11.6-14.6); RBC Distribution Width SD 43.8 fl (35.1-43.9); Red Blood Count 4.66 M/mm3 (4.2-5.4); White Blood Count 10.1 K/mm3 (4.4-11.0)
[2025-04-27 04:41] LABS: AST(SGOT) 19 U/L (<=31); Alanine Aminotransfer ALT/SGPT 17 U/L (<=34); Albumin, Serum 4.2 g/dL (3.4-4.8); Alkaline Phosphatase 86 U/L (35-104); Anion Gap 12 (5-15); BUN 26 mg/dL (4-19); BUN/Creat Ratio 32.4 RATIO (10-20); Calcium,Total 9.3 mg/dL (7.6-11.0); Carbon Dioxide 22.4 mmol/L (21.0-32.0); Chloride 104 mmol/L (98-108); Estimated Creatinine Clearance 73.16 ml/min (50-250); Globulin 3.0 g/dL (2.2-4.2); Glucose 142 mg/dL (70-99); Lipase 58 U/L (13-75); Potassium 4.5 mmol/L (3.3-5.1)
[2025-04-27 04:44] LABS: Red Blood Cells-Urine 0-5 SEEN /hpf (0-5); Squamous Epithelial Cells - UA 0-5 SEEN /hpf (5-10)
[2025-04-27] MEDS: Orphenadrine 60 MG/2 ML Ampul IV (04:53)
[2025-04-27 05:38] VITALS: BP 167/90; PULSE 77; RESP 18; TEMP 36.7; O2SAT 97
== END 2025-04-27 05:43 | disposition home or self-care (01) ==
PROVIDERS: Emergency Provider Emergency Medicine; PCP Family Medicine; Visit Provider Emergency Medicine
DX: M48.00 Spinal stenosis, site unspecified (principal); E03.9 Hypothyroidism, unspecified; Z87.442 Personal history of urinary calculi
CPT/HCPCS: 74177; 80053; 81001; 83690; 85025; 93005; 96361; 96374; 96375; 96376; 99282; Q9967; A4216; J2405

== ENCOUNTER → 2025-08-05 | Outpatient (CLI) | payer MEDICARE, OTHER, SELFPAY ==
--- NOTE | 2025-08-05 14:00 | BD_ITS ---
PROCEDURE: BD/Dexa Bone Density Study
--- NOTE | 2025-08-05 14:30 | BI_ITS ---
EXAM: BI/SCRN MAMM (CAD)W/JULI BILAT
== END | disposition home or self-care (01) ==
LOC: OPBD 13:38
PROVIDERS: PCP Family Medicine; Referring Provider Family Medicine; Visit Provider Family Medicine
DX: Z12.31 Encounter for screening mammogram for malignant neoplasm of breast (principal); M81.0 Age-related osteoporosis without current pathological fracture
CPT/HCPCS: 77063; 77067; 77080

== ENCOUNTER → 2025-08-18 | Outpatient (CLI) | payer MEDICARE, OTHER, SELFPAY ==
--- NOTE | 2025-08-18 08:20 | RAD_ITS ---
PROCEDURE: ESOPHAGUS DUAL CONTRAST 08/18/2025 REASON FOR EXAM: GERD TECHNIQUE: ESOPHAGUS DUAL CONTRAST FLUOROSCOPIC TIME: 50.5 seconds. Radiation dose: 19.2 mGy. FLUOROGRAPHIC IMAGES: 16 COMPARISON: None FINDINGS: The patient ingested barium. Imaging of the esophagus was obtained. 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 Small hiatal hernia. The patient ingested a 12 mm tablet the barium without any difficulty.. RAD/Esophagus Dual Contrast IMPRESSION: Web-like narrowing at the distal esophagus just proximal to the gastroesophagea l junction. Small hiatal hernia. The patient ingested a 12 mm tablet the barium without any difficulty. Reading Location: [facility]
== END | disposition home or self-care (01) ==
LOC: RAD 08:07
PROVIDERS: PCP Family Medicine; Referring Provider Family Medicine; Visit Provider Family Medicine
DX: K21.9 Gastro-esophageal reflux disease without esophagitis (principal)
CPT/HCPCS: 74221